=== PATIENT | female | born 1950 | race Caucasian/White ===

== ENCOUNTER 2016-07-14 19:08 | Emergency (ER) | payer OTHER ==
--- NOTE | 2016-07-14 20:02 | EDPHY ---
H & P Time Seen by Provider: 07/14/16 19:37 HPI/ROS: CHIEF COMPLAINT: ridiculous weak HISTORY OF PRESENT ILLNESS: Patient is a 65-year-old female with a history of Crohn's disease who presents to the emergency department feeling extremely weak. She states that it has slowly been progressing over the last month. She really noticed it worsening since last Tuesday. She feels fatigued when she tries to move about. She is able to take care of her ADLs. Patient denies any headache. She has had a mildly something nose. No cough sore throat. No chest pain or abdominal pain. No nausea or vomiting. She has had normal output from her ostomy. She states she has been trying to hydrate the thinks she is dehydrated. She denies dysuria or frequency. Subjective fever. No chills. REVIEW OF SYSTEMS: My complete review of systems is negative except as mentioned in the HPI. Past Medical/Surgical History: Includes Crohn's disease, glomerulonephritis, inflammatory arthritis, osteoporosis Past surgical history: Includes numerous Crohn related surgeries including ileostomy and colectomy. Social history: Patient does not drink alcohol. Smoking Status: Never smoked Physical Exam: Vitals noted. 37.4, 93/72, 98, 16, 99% on room air GENERAL: Well-appearing, in no acute distress, alert. HEENT: Eyes normal to inspection, normal pharynx, no signs of dehydration. NECK: No thyromegaly, no lymphadenopathy, supple. RESPIRATORY: Clear to auscultation bilaterally, no rales, rhonchi or wheezing. CVS: Regular rate and rhythm, no rubs, murmurs, or gallops. ABDOMEN: Soft, nontender, nondistended, no organomegaly. Benign. Ileostomy site clean dry and intact. Normal appearing output BACK: Normal to inspection, no CVA tenderness. SKIN: Normal color, no rash, warm, dry. No pallor. EXTREMITIES: No pedal edema, no calf tenderness, no Homans sign or cords, no joint swelling. NEURO/PSYCH: Alert and oriented , normal mood and affect, normal motor sensory exam. Constitutional: Initial Vital Signs Temperature (C) 37.4 C 07/14/16 19:14 Heart Rate 98 07/14/16 19:14 Respiratory Rate 16 07/14/16 19:14 Blood Pressure 93/72 L 07/14/16 19:14 O2 Sat (%) 99 07/14/16 19:14 O2 Delivery Mode Room Air Allergies/Adverse Reactions: gluten Allergy (Verified 07/14/16 19:19) SULFA Allergy (Uncoded 07/14/16 19:19) Home Medications: Medication Instructions Recorded Estrogen 06/30/15 Progesterone 06/30/15 oxyCODONE CR 07/14/16 Medical Decision Making ED Course/Re-evaluation: In the emergency department I discussed possible etiologies with the patient. I answered all her questions. Laboratory studies, a chest x-ray and EKG were ordered. Patient was given normal saline 1 L IV for hydration. EKG shows normal sinus rhythm, normal rate, normal axis, normal intervals. There are no ST or T-wave abnormalities. EKG is normal as interpreted by me. Patient has a white count of 9.6. Creatinine is minimally elevated at 1.3. This is consistent with her previous values. Patient has low sodium 129. I reviewed previous laboratory studies and she does have intermittent hyponatremia. Her lipase is minimally elevated at 332. Troponin is negative Chest x-ray: No acute disease noted. Old compression fractures On recheck the patient was concerned she continued to be dehydrated. She is given a 2nd L of normal saline. She was still unable to give urine. I discussed all results with the patient. I answered her questions. I rechecked the patient on numerous occasions. She remained concerned that she was dehydrated. She was given a 3rd L of normal saline. Abdomen soft, nontender nondistended. No respiratory distress. 2215: I discussed the results with the patient. I offered the patient admission for further evaluation. Patient would prefer to go home at this time. She is aware she needs close follow-up. She is aware of her abnormal laboratory findings as documented here. Differential Diagnosis: My differential includes but is not limited to influenza, viral illness, dehydration, electrolyte abnormality, sugar abnormality, ACS, acute IN, pneumonia, urinary tract infection - Data Points Laboratory Results: Laboratory Results 07/14/16 19:50 07/14/16 19:50 07/14/16 07/14/16 21:50 19:50 WBC 9.60 H 10^3/uL (3.80-9.50) RBC 4.52 10^6/uL (4.18-5.33) Hgb 14.1 g/dL (12.6-16.3) Hct 39.3 % (38.0-47.0) MCV 86.9 fL (81.5-99.8) MCH 31.2 pg (27.9-34.1) MCHC 35.9 g/dL (32.4-36.7) RDW 13.1 % (11.5-15.2) Plt Count 227 10^3/uL (150-400) MPV 9.8 fL (8.7-11.7) Neut % (Auto) 70.8 % (39.3-74.2) Lymph % (Auto) 19.9 % (15.0-45.0) [place] % (Auto) 6.1 % (4.5-13.0) Eos % (Auto) 1.9 % (0.6-7.6) Baso % (Auto) 0.8 % (0.3-1.7) Nucleat RBC Rel Count 0.0 % (0.0-0.2) Absolute Neuts (auto) 6.79 H 10^3/uL (1.70-6.50) Absolute Lymphs (auto) 1.91 10^3/uL (1.00-3.00) Absolute Monos (auto) 0.59 10^3/uL (0.30-0.80) Absolute Eos (auto) 0.18 10^3/uL (0.03-0.40) Absolute Basos (auto) 0.08 10^3/uL (0.02-0.10) Absolute Nucleated RBC 0.00 10^3/uL (0-0.01) Immature Gran % 0.5 % (0.0-1.1) Immature Gran # 0.05 10^3/uL (0.00-0.10) Sodium 129 L mEq/L (134-144) Potassium 4.0 mEq/L (3.5-5.2) Chloride 91 L mEq/L (97-110) Carbon Dioxide 27 mEq/l (22-31) Anion Gap 11 mEq/L (8-16) BUN 30 H mg/dL (7-23) Creatinine 1.3 H mg/dL (0.6-1.0) Estimated GFR 41 Glucose 93 mg/dL (70-100) Calcium 9.8 mg/dL (8.5-10.4) Total Bilirubin 0.6 mg/dL (0.1-1.4) Conjugated Bilirubin 0.2 mg/dL (0.0-0.5) Unconjugated Bilirubin 0.4 mg/dL (0.0-1.1) AST 28 IU/L (14-46) ALT 24 IU/L (9-52) Alkaline Phosphatase 112 IU/L (38-126) Troponin I < 0.012 ng/mL (0-0.034) Total Protein 7.1 g/dL (6.3-8.2) Albumin 4.2 g/dL (3.5-5.0) Lipase 332.0 H IU/L (23-300) TSH 2.110 uIU/mL (0.465-4.680) Urine Color YELLOW Urine Appearance CLEAR Urine pH 8.0 H (5.0-7.5) Ur Specific [place] 1.015 (1.002-1.030) Urine Protein NEGATIVE (NEGATIVE) Urine Ketones NEGATIVE (NEGATIVE) Urine Blood NEGATIVE (NEGATIVE) Urine Nitrate NEGATIVE (NEGATIVE) Urine Bilirubin NEGATIVE (NEGATIVE) Urine Urobilinogen NEGATIVE EU (0.2-1.0) Ur Leukocyte Esterase NEGATIVE (NEGATIVE) Ur Culture Indicated? NOT INDICATED (NI) Urine Glucose NEGATIVE (NEGATIVE) Medications Given: Discontinued Medications Sodium Chloride (Ns) 2,000 mls @ 0 mls/hr IV EDNOW ONE PRN Reason: Wide Open Stop: 07/14/16 21:09 Last Admin: 07/14/16 20:30 Dose: 2,000 mls Sodium Chloride (Ns) 1,000 mls @ 0 mls/hr IV EDNOW ONE PRN Reason: Wide Open Stop: 07/14/16 21:20 Last Admin: 07/14/16 21:44 Dose: 1,000 mls Lorazepam (Ativan Injection) 0.5 mg IVP EDNOW ONE Stop: 07/14/16 21:59 Last Admin: 07/14/16 22:13 Dose: 0.5 mg Departure - Departure Disposition: Home, Routine, Self-Care Clinical Impression: Generalized weakness, Hyponatremia, Elevated lipase Condition: Good Instructions: Weakness (ED), Hyponatremia (ED) Additional Instructions: Return with increasing weakness, fever, vomiting, diarrhea, shortness of breath , abdominal pain or any other concerns. Referrals: Jyoti Petty MD [Primary Care Provider] - 1-2 days without fail
[2016-07-14 20:10] LABS: % IMMATURE GRANULYOCYTES 0.5 % (0.0-1.1); ABSOLUTE IMMATURE GRANULOCYTES 0.05 10^3/uL (0.00-0.10); ADD DIFF? NO; ADD MORPH? NO; ADD SCAN? NO; ATYPICAL LYMPHOCYTE FLAG 20 (0-99); FRAGMENT RBC FLAG 0 (0-99); HEMATOCRIT 39.3 % (38.0-47.0); HEMOGLOBIN 14.1 g/dL (12.6-16.3); LEFT SHIFT FLG 0 (0-99); LIPEMIA HEMOLYSIS FLAG 90 (0-99); MEAN CELL HEMOGLOBIN 31.2 pg (27.9-34.1); MEAN CELL HEMOGLOBIN CONCENTR. 35.9 g/dL (32.4-36.7); MEAN CELL VOLUME 86.9 fL (81.5-99.8); MEAN PLATELET VOLUME 9.8 fL (8.7-11.7); PLATELET CLUMPS FLAG 20 (0-99); PLATELET COUNT 227 10^3/uL (150-400); RED BLOOD CELL COUNT 4.52 10^6/uL (4.18-5.33); RED CELL DISTRIBUTION WIDTH 13.1 % (11.5-15.2)
[2016-07-14 20:25] LABS: ALANINE AMINOTRANSFERASE 24 IU/L (9-52); ALBUMIN 4.2 g/dL (3.5-5.0); ALKALINE PHOSPHATASE 112 IU/L (38-126); ANION GAP 11 mEq/L (8-16); ASPARTATE AMINOTRANSFERASE 28 IU/L (14-46); BILIRUBIN,TOTAL 0.6 mg/dL (0.1-1.4); BILIRUBIN-CONJUGATED 0.2 mg/dL (0.0-0.5); BILIRUBIN-UNCONJUGATED 0.4 mg/dL (0.0-1.1); CALCIUM 9.8 mg/dL (8.5-10.4); CARBON DIOXIDE 27 mEq/l (22-31); CHLORIDE 91 mEq/L (97-110); CREATININE 1.3 mg/dL (0.6-1.0); GLOMERULAR FILTRATION RATE 41; GLUCOSE 93 mg/dL (70-100); SODIUM 129 mEq/L (134-144); TOTAL PROTEIN 7.1 g/dL (6.3-8.2)
--- NOTE | 2016-07-14 20:31 | CPEKG ---
Heart Rate: 86 RR Interval: 698 P-R Interval: 124 QRSD Interval: 70 QT Interval: 392 QTC Interval: 469 P [place]: 80 QRS [place]: 71 T Wave [place]: 53 EKG Severity - NORMAL ECG - EKG Impression: SINUS RHYTHM Electronically Signed By: Ann Pruett 14-Jul-2016 22:03:24
[2016-07-14 20:36] LABS: TROPONIN I < 0.012 ng/mL (0-0.034)
--- NOTE | 2016-07-14 20:40 | DX ---
PA and Lateral Chest on July 14, 2016 Clinical Indications: Fever, body aches, and chest pain. Comparison: May 03, 2006. Findings: The lungs are clear, and no masses are found. The heart and pulmonary vessels are normal. There are no pleural effusions and no pneumothorax. The bones are unremarkable for this age. Mild loss of height at T11 and T7. The T11 compression fracture is largely unchanged. There is some inc reased loss of height at T7 compared to prior examination. There is also mild loss of height at T6, previously noted. Impression: 1. No acute cardiopulmonary process. 2. Compression fractures at T6, T7 and T11. I suspect these may be old. There has been some interva l change at the T6 and T7 levels compared to 2006.
[2016-07-14] MEDS ORDERED: NS 2,000 ML IV ONE (21:08)
[2016-07-14] MEDS ORDERED: NS 1,000 ML IV ONE (21:19)
[2016-07-14 21:55] VITALS: O2SAT 96
[2016-07-14] MEDS ORDERED: LORazepam 2 MG/ML INJ IVP ONE (21:58)
[2016-07-14] MEDS ORDERED: LORazepam 2 MG/ML INJ ONE (22:00)
[2016-07-14 22:08] LABS: COLOR YELLOW; LEUKOCYTE ESTERASE,URINE NEGATIVE (NEGATIVE); NITRITE,URINE NEGATIVE (NEGATIVE)
[2016-07-14] MEDS ORDERED: LORazepam 1 MG TAB PO ONE (22:36)
[2016-07-14 22:49] VITALS: BP 100/71; PULSE 97; RESP 16; TEMP 98.2
== END 2016-07-14 22:49 | disposition home or self-care (01) ==
DX: E87.1 Hypo-osmolality and hyponatremia (principal); E78.89 Other lipoprotein metabolism disorders
CPT/HCPCS: 96374

== ENCOUNTER → 2016-10-21 | Outpatient (CLI) | payer OTHER | LOC: FIMAGING 11:45 | PROVIDERS: ATTEND Physician Assistant | DX: S06.350A Traumatic hemorrhage of left cerebrum without loss of consciousness, initial encounter (principal); R41.89 Other symptoms and signs involving cognitive functions and awareness; W19.XXXA Unspecified fall, initial encounter ==

== ENCOUNTER → 2016-11-01 | Outpatient (CLI) | payer OTHER | LOC: FIMAGING 16:39 | PROVIDERS: ATTEND Family Medicine | DX: R90.89 Other abnormal findings on diagnostic imaging of central nervous system (principal); R41.89 Other symptoms and signs involving cognitive functions and awareness; S09.90XA Unspecified injury of head, initial encounter; W19.XXXA Unspecified fall, initial encounter ==

== ENCOUNTER 2016-11-03 20:12 | Observation (INO) | payer OTHER ==
[2016-11-03] MEDS ORDERED: ONDANSETRON 4 MG/2 ML VIAL ONE (20:31)
[2016-11-03] MEDS ORDERED: NS 1,000 ML IV ONE ×2 (20:41)
[2016-11-03] MEDS ORDERED: ONDANSETRON 4 MG/2 ML VIAL IVP ONE (20:41)
--- NOTE | 2016-11-03 20:43 | EDPHY ---
H & P Time Seen by Provider: 11/03/16 20:30 HPI/ROS: CHIEF COMPLAINT: Nausea and vomiting HISTORY OF PRESENT ILLNESS: Patient has a history of Crohn's disease colectomy and ileostomy. She has been struggling with intermittent nausea since she took Levaquin in mid September of this year. She saw her primary care practice at [facility] yesterday and again today for nausea and dehydration and IV fluids. Today, she presents with persistent nausea and multiple episodes of vomiting, 3 today and 1 yesterday. Symptoms are severe. Associated with her feeling very fatigued weak with no energy. Not associated with change in ileostomy output or abdominal distention or abdominal pain. No coffee-ground emesis or hematemesis. REVIEW OF SYSTEMS: Eye: no change in vision ENT: Mild sore throat from thrush last week but better now. Cardiac: no chest pain or syncope Pulmonary: no cough or SOB Abdomen: HPI Musculoskeletal: no back pain Skin: no rash Neuro: no headache Constitutional: no fever : no urinary symptoms A comprehensive 10 point review of systems is otherwise negative aside from elements mentioned in the history of present illness. PAST MEDICAL HISTORY: Crohn's disease, ileostomy, colectomy. IgA nephropathy. Arthritis and osteoporosis. Social history: Smoker General Appearance: Alert and conversant, cooperative. Eyes: No scleral icterus. ENT, Mouth: Dry mucous membranes Respiratory: Normal respiratory effort, breath sounds equal, lungs are clear to auscultation. Cardiovascular: Regular rate and rhythm. Gastrointestinal: Abdomen is soft and non tender. Ileostomy is soft, not distended, no peritoneal signs. Neurological: Alert and oriented x3. Normally conversant. Face symmetric, normal movement and sensation in all extremities. Skin: Warm and dry, no rashes. Musculoskeletal: No peripheral edema and no joint swelling. Psychiatric: Not agitated. Emergency Department course/MDM: Normal saline 2 L IV for nausea and vomiting. Check labs because patient relates a history of recent hyperkalemia. Zofran 4 mg IV. 2124: Re-examined, results discussed including creatinine of 2.4 which is elevated compared to 2.2 on the 01 of October and 1.3 in July of this year. Admission for IV fluids, acute renal failure likely from dehydration. Smoking Status: Never smoked Constitutional: Initial Vital Signs Temperature (C) 36.7 C 04/26/17 20:29 Heart Rate 92 11/03/16 20:29 Respiratory Rate 18 11/03/16 20:29 Blood Pressure 98/61 L 11/03/16 20:29 O2 Sat (%) 94 11/03/16 20:29 O2 Delivery Mode Room Air Allergies/Adverse Reactions: gluten Allergy (Verified 07/14/16 19:19) SULFA Allergy (Uncoded 07/14/16 19:19) Home Medications: Medication Instructions Recorded Estradiol [Estradiol 0.5 MG (RX)] 0.5 mg PO DAILY 11/03/16 Herbals/Supplements -Info Only 1 ea PO DAILY 11/03/16 Ondansetron Odt [Zofran Odt 4 mg 4 - 8 mg PO DAILY PRN 11/03/16 (*)] Progesterone, Micronized 100 mg PO DAILY 11/03/16 [Progesterone] oxyCODONE HCL [Oxycodone HCl] 5 ml PO BID PRN 11/03/16 Medical Decision Making Differential Diagnosis: Differential diagnosis considered for nausea and vomiting including but not limited to gastroenteritis, gastritis, appendicitis, and medication side effect. Consult/Admit Bed Type: [place] [id number] - Data Points Laboratory Results: Laboratory Results 11/03/16 20:40 11/03/16 20:40 11/03/16 11/03/16 11/03/16 20:40 20:40 20:40 WBC 13.41 10^3/uL H 10^3/uL (3.80-9.50) RBC 3.85 10^6/uL L 10^6/uL (4.18-5.33) Hgb 12.2 g/dL L g/dL (12.6-16.3) Hct 34.8 % L % (38.0-47.0) MCV 90.4 fL fL (81.5-99.8) MCH 31.7 pg pg (27.9-34.1) MCHC 35.1 g/dL g/dL (32.4-36.7) RDW 13.1 % % (11.5-15.2) Plt Count 252 10^3/uL 10^3/uL (150-400) MPV 9.2 fL fL (8.7-11.7) Neut % (Auto) 66.8 % % (39.3-74.2) Lymph % (Auto) 23.3 % % (15.0-45.0) [place] % (Auto) 5.5 % % (4.5-13.0) Eos % (Auto) 2.8 % % (0.6-7.6) Baso % (Auto) 1.0 % % (0.3-1.7) Nucleat RBC Rel Count 0.0 % % (0.0-0.2) Absolute Neuts (auto) 8.96 10^3/uL H 10^3/uL (1.70-6.50) Absolute Lymphs (auto) 3.12 10^3/uL H 10^3/uL (1.00-3.00) Absolute Monos (auto) 0.74 10^3/uL 10^3/uL (0.30-0.80) Absolute Eos (auto) 0.38 10^3/uL 10^3/uL (0.03-0.40) Absolute Basos (auto) 0.13 10^3/uL H 10^3/uL (0.02-0.10) Absolute Nucleated RBC 0.00 10^3/uL 10^3/uL (0-0.01) Immature Gran % 0.6 % % (0.0-1.1) Immature Gran # 0.08 10^3/uL 10^3/uL (0.00-0.10) Sodium 134 mEq/L mEq/L (134-144) Potassium 4.0 mEq/L mEq/L (3.5-5.2) Chloride 99 mEq/L mEq/L (97-110) Carbon Dioxide 23 mEq/l mEq/l (22-31) Anion Gap 12 mEq/L mEq/L (8-16) BUN 45 mg/dL H mg/dL (7-23) Creatinine 2.4 mg/dL H mg/dL (0.6-1.0) Estimated GFR 20 Glucose 111 mg/dL H mg/dL (70-100) Calcium 10.6 mg/dL H mg/dL (8.5-10.4) Total Bilirubin 0.6 mg/dL mg/dL (0.1-1.4) Conjugated Bilirubin 0.4 mg/dL mg/dL (0.0-0.5) Unconjugated Bilirubin 0.2 mg/dL mg/dL (0.0-1.1) AST 29 IU/L IU/L (14-46) ALT 26 IU/L IU/L (9-52) Alkaline Phosphatase 105 IU/L IU/L (38-126) Total Protein 7.7 g/dL g/dL (6.3-8.2) Albumin 4.5 g/dL g/dL (3.5-5.0) Lipase 146.0 IU/L IU/L (23-300) Medications Given: Discontinued Medications Sodium Chloride (Ns) 1,000 mls @ 0 mls/hr IV ONCE ONE PRN Reason: Wide Open Stop: 11/03/16 20:42 Last Admin: 11/03/16 21:16 Dose: 1,000 mls Sodium Chloride (Ns) 1,000 mls @ 0 mls/hr IV ONCE ONE PRN Reason: Wide Open Stop: 11/03/16 20:42 Last Admin: 11/03/16 20:44 Dose: 1,000 mls Ondansetron HCl (Zofran) 4 mg IVP EDNOW ONE Stop: 11/03/16 20:42 Last Admin: 11/03/16 20:44 Dose: 4 mg Departure - Departure Disposition: [facility] Inpatient Acute Clinical Impression: Nausea & vomiting Qualifiers: Vomiting type: unspecified Vomiting Intractability: non-intractable Qualified Code(s): R11.2 - Nausea with vomiting, unspecified Acute renal failure Qualifiers: Acute renal failure type: unspecified Qualified Code(s): N17.9 - Acute kidney failure, unspecified Condition: Good
[2016-11-03 20:50] LABS: % IMMATURE GRANULYOCYTES 0.6 % (0.0-1.1); ABSOLUTE IMMATURE GRANULOCYTES 0.08 10^3/uL (0.00-0.10); ADD DIFF? NO; ADD MORPH? NO; ADD SCAN? NO; ATYPICAL LYMPHOCYTE FLAG 20 (0-99); FRAGMENT RBC FLAG 0 (0-99); HEMATOCRIT 34.8 % (38.0-47.0); HEMOGLOBIN 12.2 g/dL (12.6-16.3); LEFT SHIFT FLG 0 (0-99); LIPEMIA HEMOLYSIS FLAG 90 (0-99); MEAN CELL HEMOGLOBIN 31.7 pg (27.9-34.1); MEAN CELL HEMOGLOBIN CONCENTR. 35.1 g/dL (32.4-36.7); MEAN CELL VOLUME 90.4 fL (81.5-99.8); MEAN PLATELET VOLUME 9.2 fL (8.7-11.7); PLATELET CLUMPS FLAG 0 (0-99); PLATELET COUNT 252 10^3/uL (150-400); RED BLOOD CELL COUNT 3.85 10^6/uL (4.18-5.33); RED CELL DISTRIBUTION WIDTH 13.1 % (11.5-15.2)
[2016-11-03 21:14] LABS: ANION GAP 12 mEq/L (8-16); CALCIUM 10.6 mg/dL (8.5-10.4); CARBON DIOXIDE 23 mEq/l (22-31); CHLORIDE 99 mEq/L (97-110); CREATININE 2.4 mg/dL (0.6-1.0); GLOMERULAR FILTRATION RATE 20; GLUCOSE 111 mg/dL (70-100); SODIUM 134 mEq/L (134-144)
[2016-11-03 22:24] LABS: ALBUMIN 4.5 g/dL (3.5-5.0); BILIRUBIN,TOTAL 0.6 mg/dL (0.1-1.4); BILIRUBIN-CONJUGATED 0.4 mg/dL (0.0-0.5); BILIRUBIN-UNCONJUGATED 0.2 mg/dL (0.0-1.1); TOTAL PROTEIN 7.7 g/dL (6.3-8.2)
[2016-11-03] MEDS ORDERED: ACETAMINOPHEN 325 MG TAB PO PRN (23:58)
[2016-11-03] MEDS ORDERED: ONDANSETRON 4 MG/2 ML VIAL IVP PRN (23:58)
[2016-11-03] MEDS ORDERED: TEMAZEPAM 15 MG CAP PO PRN (23:58)
[2016-11-03] MEDS ORDERED: ONDANSETRON DISINTEGRATING 4 MG TAB PO PRN (23:58)
[2016-11-04] MEDS ORDERED: oxyCODONE IR 15 MG TAB PO ONE (00:03)
[2016-11-04] MEDS: NS 1,000 ML IV SCH ×2 (00:18→06:28)
[2016-11-04] MEDS: oxyCODONE IR 5 MG TAB PO PRN ×3 (03:15→12:20)
--- NOTE | 2016-11-04 04:27 | PDGENHP ---
History and Physical - Chief Complaint nausea, vomiting - History of Present Illness Patient is a 66 year old female with Crohn's disease s/p subtotal colectomy with ileostomy, IgA nephropathy (baseline cr 1.1-1.3) who presents to the ED with complaint of nausea and vomiting for the past 2 days. Patient states she had a UTI and pneumonia in early September, completed a course of Levaquin and since that time she has been feeling nauseous. However about 3 days ago her nausea intensified and she began having nonbilious nonbloody vomiting, 3-4 episodes/day. She denies any associated abdominal pain, or change in her ileostomy output volume or quality. She also denies any recent fevers chills, coughing, congestion, chest pain, shortness of breath, dysuria. She was evaluated by her PMD about 2 days ago, had labs drawn and was given IV fluid hydration in the out patient setting. However her symptoms persisted so she came to the ED for further evaluation. On arrival to the ED patient was afebrile hemodynamic stable. Labs revealed leukocytosis, elevated BUN and creatinine, normal K. She was given IV fluid hydration and admitted to the hospital service for further management. History Information - Allergies/Home Medication List Allergies/Adverse Reactions: gluten Allergy (Verified 07/14/16 19:19) SULFA Allergy (Uncoded 07/14/16 19:19) Home Medications: Estradiol [Estradiol 0.5 MG (RX)] 0.5 mg PO DAILY 11/03/16 [Last Taken 11/03/16] Herbals/Supplements -Info Only 1 ea PO DAILY 11/03/16 [Last Taken Unknown] Ondansetron Odt [Zofran Odt 4 mg (*)] 4 - 8 mg PO DAILY PRN 11/03/16 [Last Taken Unknown] Progesterone, Micronized [Progesterone] 100 mg PO DAILY 11/03/16 [Last Taken ] oxyCODONE HCL [Oxycodone HCl] 5 ml PO BID PRN 11/03/16 [Last Taken Unknown] I have personally reviewed and updated: family history, medical history, social history, surgical history - Past Medical History Additional medical history: Crohn's disease s/p subtotal colectomy with ileostomy. IgA nephropathy (baseline cr 1.1-1.3). Osteoporosis with several chronic compression fractures. B12 deficiency - Surgical History Additional surgical history: subtotal colectomy with resulting ileostomy. tonsillectomy. ankle fracture repair - Family History Positive for: non-pertinent - Social History Smoking Status: Current some day smoker (1-2 cigarettes occasionally) Alcohol Use: None Drug Use: None Additional social history: Patient lives with her daughter, is independent in ADLs Review of Systems ROS: 10pt was reviewed & negative except for what was stated in HPI & below Physical Exam Temp Pulse Resp BP Pulse Ox 36.5 C 94 14 85/55 L 95 11/04/16 03:09 11/04/16 03:09 11/04/16 03:09 11/04/16 03:09 11/04/16 03:09 Constitutional: no apparent distress, appears nourished, not in pain Eyes: PERRL, anicteric sclera, EOMI Ears, Nose, Mouth, Throat: hearing normal, ears appear normal, no oral mucosal ulcers, dry mucous membranes Cardiovascular: regular rate and rhythym, no murmur, rub, or gallop, pulses symmetric bilaterally, No JVD, No edema Peripheral Pulses: 2+: dorsalis-pedis (R), dorsalis-pedis (L) Respiratory: no respiratory distress, no rales or rhonchi, clear to auscultation Gastrointestinal: normoactive bowel sounds, soft, non-tender abdomen, no palpable masses, other (ileostomy in R abdomen; stoma pink, without erythema), No guarding, No rebound Genitourinary: no bladder fullness, no bladder tenderness Skin: warm, normal color, no rashes or abrasions, no fluctuance, no induration, No mottled Musculoskeletal: full muscle strength, no muscle tenderness, normal joint ROM, no joint effusions Neurologic: AAOx3, sensation intact bilaterally, CN II-XII Intact, No weakness, No numbness Psychiatric: interacting appropriately, not anxious, not encephalopathic, thought process linear Lab Data & Imaging Review 11/03/16 20:40 11/03/16 20:40 WBC 13.41 10^3/uL (3.80-9.50) H 11/03/16 20:40 RBC 3.85 10^6/uL (4.18-5.33) L 11/03/16 20:40 Hgb 12.2 g/dL (12.6-16.3) L 11/03/16 20:40 Hct 34.8 % (38.0-47.0) L 11/03/16 20:40 MCV 90.4 fL (81.5-99.8) 11/03/16 20:40 MCH 31.7 pg (27.9-34.1) 11/03/16 20:40 MCHC 35.1 g/dL (32.4-36.7) 11/03/16 20:40 RDW 13.1 % (11.5-15.2) 11/03/16 20:40 Plt Count 252 10^3/uL (150-400) 11/03/16 20:40 MPV 9.2 fL (8.7-11.7) 11/03/16 20:40 Neut % (Auto) 66.8 % (39.3-74.2) 11/03/16 20:40 Lymph % (Auto) 23.3 % (15.0-45.0) 11/03/16 20:40 [place] % (Auto) 5.5 % (4.5-13.0) 11/03/16 20:40 Eos % (Auto) 2.8 % (0.6-7.6) 11/03/16 20:40 Baso % (Auto) 1.0 % (0.3-1.7) 11/03/16 20:40 Nucleat RBC Rel Count 0.0 % (0.0-0.2) 11/03/16 20:40 Absolute Neuts (auto) 8.96 10^3/uL (1.70-6.50) H 11/03/16 20:40 Absolute Lymphs (auto) 3.12 10^3/uL (1.00-3.00) H 11/03/16 20:40 Absolute Monos (auto) 0.74 10^3/uL (0.30-0.80) 11/03/16 20:40 Absolute Eos (auto) 0.38 10^3/uL (0.03-0.40) 11/03/16 20:40 Absolute Basos (auto) 0.13 10^3/uL (0.02-0.10) H 11/03/16 20:40 Absolute Nucleated RBC 0.00 10^3/uL (0-0.01) 11/03/16 20:40 Immature Gran % 0.6 % (0.0-1.1) 11/03/16 20:40 Immature Gran # 0.08 10^3/uL (0.00-0.10) 11/03/16 20:40 Sodium 134 mEq/L (134-144) 11/03/16 20:40 Potassium 4.0 mEq/L (3.5-5.2) 11/03/16 20:40 Chloride 99 mEq/L (97-110) 11/03/16 20:40 Carbon Dioxide 23 mEq/l (22-31) 11/03/16 20:40 Anion Gap 12 mEq/L (8-16) 11/03/16 20:40 BUN 45 mg/dL (7-23) H 11/03/16 20:40 Creatinine 2.4 mg/dL (0.6-1.0) H 11/03/16 20:40 Estimated GFR 20 11/03/16 20:40 Glucose 111 mg/dL (70-100) H 11/03/16 20:40 Calcium 10.6 mg/dL (8.5-10.4) H 11/03/16 20:40 Total Bilirubin 0.6 mg/dL (0.1-1.4) 11/03/16 20:40 Conjugated Bilirubin 0.4 mg/dL (0.0-0.5) 11/03/16 20:40 Unconjugated Bilirubin 0.2 mg/dL (0.0-1.1) 11/03/16 20:40 AST 29 IU/L (14-46) 11/03/16 20:40 ALT 26 IU/L (9-52) 11/03/16 20:40 Alkaline Phosphatase 105 IU/L (38-126) 11/03/16 20:40 Total Protein 7.7 g/dL (6.3-8.2) 11/03/16 20:40 Albumin 4.5 g/dL (3.5-5.0) 11/03/16 20:40 Lipase 146.0 IU/L (23-300) 11/03/16 20:40 Assessment & Plan Assessment: Patient is a 66-year-old female with history of Crohn's disease, ileostomy who presents to the ED with complaint of nausea vomiting and fatigue. ED workup reveals acute renal failure, presumed to be secondary to prerenal hypovolemia. Nausea & vomiting (Acute) Acute renal failure (Acute) Plan: # acute renal failure Patient reports history of known IgA nephropathy, with previous baseline cr 1- 1.3. Presenting labs show elevated BUN/cr from previous baseline. Given her history of nausea, vomiting and decreased PO intake over past 3 days, suspect pre-renal etiology. Will check urine electrolytes, UA and renal US to further assess. She has been given aggressive IVF hydration in the ED, will continue maintenance hydration overnight and reassess BMP, electrolytes in am. # nausea, vomiting Symptoms have been present for about 3 days, not associated with any significant abdominal pain. LFTs and Lipase are wnl. Suspect a viral gastritis. Symptoms have improved in the ED with zofran, will cont this as needed. # leukocytosis Likely reactive in setting of above, possibly the result of a viral infection. She is afebrile, not tachycardic or tachypneic and has no clinical indications for antibiotics at this time. Will cont to monitor. # crohn's disease Patient reports this has been in remission for several years. Denies any abdominal pain, blood in her vomitus or stools on today's presentation. Will continue her B12 and MVN supplementation. # osteoporosis, chronic pain Stable, will provide pain meds prn. # dispo: admit to observation status # gen: renal diet DVT ppx: HSQ Full code
[2016-11-04 05:34] LABS: % IMMATURE GRANULYOCYTES 0.3 % (0.0-1.1); ABSOLUTE IMMATURE GRANULOCYTES 0.02 10^3/uL (0.00-0.10); ADD DIFF? NO; ADD MORPH? NO; ADD SCAN? NO; ATYPICAL LYMPHOCYTE FLAG 0 (0-99); FRAGMENT RBC FLAG 0 (0-99); HEMATOCRIT 28.4 % (38.0-47.0); HEMOGLOBIN 9.9 g/dL (12.6-16.3); LEFT SHIFT FLG 0 (0-99); LIPEMIA HEMOLYSIS FLAG 90 (0-99); MEAN CELL HEMOGLOBIN 31.4 pg (27.9-34.1); MEAN CELL HEMOGLOBIN CONCENTR. 34.9 g/dL (32.4-36.7); MEAN CELL VOLUME 90.2 fL (81.5-99.8); MEAN PLATELET VOLUME 9.4 fL (8.7-11.7); PLATELET CLUMPS FLAG 0 (0-99); PLATELET COUNT 183 10^3/uL (150-400); RED BLOOD CELL COUNT 3.15 10^6/uL (4.18-5.33); RED CELL DISTRIBUTION WIDTH 13.2 % (11.5-15.2)
[2016-11-04 05:50] LABS: ANION GAP 7 mEq/L (8-16); CALCIUM 9.1 mg/dL (8.5-10.4); CARBON DIOXIDE 23 mEq/l (22-31); CHLORIDE 107 mEq/L (97-110); CREATININE 1.9 mg/dL (0.6-1.0); GLOMERULAR FILTRATION RATE 26; GLUCOSE 93 mg/dL (70-100); MAGNESIUM 1.6 mg/dL (1.6-2.3); SODIUM 137 mEq/L (134-144)
[2016-11-04] MEDS ORDERED: HEPARIN 5,000 UNIT/0.5 ML SYR SC SCH (06:00)
[2016-11-04 06:28] LABS: COLOR YELLOW; LEUKOCYTE ESTERASE,URINE NEGATIVE (NEGATIVE); NITRITE,URINE NEGATIVE (NEGATIVE)
[2016-11-04 06:39] LABS: RANDOM URINE POTASSIUM 81.3 mEq/L (0.5-35.0); RANDOM URINE PROTEIN 13 mg/dL (0-11)
[2016-11-04] MEDS ORDERED: NS 1,000 ML IV ONE ×2 (08:45→09:38)
--- NOTE | 2016-11-04 08:50 | CPEKG ---
Heart Rate: 71 RR Interval: 845 P-R Interval: 124 QRSD Interval: 68 QT Interval: 384 QTC Interval: 418 P [place]: 85 QRS [place]: 74 T Wave [place]: 65 EKG Severity - ABNORMAL ECG - EKG Impression: SINUS RHYTHM EKG Impression: POOR R WAVE PROGRESSION ANTERIORLY, POSSIBLE OLD ANTERIOR INFARCT Electronically Signed By: Lee Robledo 04-Nov-2016 14:35:39
[2016-11-04] MEDS ORDERED: Herbals/Supplements -Info Only PO SCH (09:00)
[2016-11-04] MEDS ORDERED: PROGESTERONE,MICR 100 MG CAP PO SCH (09:00)
[2016-11-04] MEDS ORDERED: ESTRADIOL 0.5 MG TAB PO SCH (09:00)
[2016-11-04] MEDS ORDERED: LORazepam 1 MG TAB PO ONE (09:38)
[2016-11-04] MEDS ORDERED: oxyCODONE IR 5 MG TAB PO ONE (09:38)
--- NOTE | 2016-11-04 10:53 | PDDCSUM ---
Discharge Summary Discharge Summary: DISCHARGE SUMMARY FOLLOW-UP ITEMS: Repeat basic metabolic panel on Tuesday DATE OF ADMISSION: 11/03/2016 DATE OF DISCHARGE: 11/04/2016 DISCHARGE DIAGNOSES: 1. Acute kidney injury on chronic kidney disease stage 3 2. Acute hypotension 3. Acute nausea and vomiting CONSULTATIONS: None PROCEDURES / IMAGING: Renal ultrasound demonstrating no evidence of hydronephrosis CHIEF COMPLAINT: Acute nausea and vomiting SUBJECTIVE: Patient is feeling well at time of discharge, her back is hurting her somewhat PHYSICAL EXAM ON DISCHARGE: Systolic blood pressure 92, heart rate 78 afebrile, alert awake oriented x3 no apparent distress, bowel sounds are present, ostomy bag with brown liquid stool , no tenderness to palpation over the abdomen LABS ON DISCHARGE: Creatinine is 1.9, white blood cell count 7200, hemoglobin 9.9, liver panel unremarkable, potassium 4, TSH 2.2, urine sodium less than 5, urinalysis unremarkable HOSPITAL COURSE BY PROBLEM: 1. Acute kidney injury on chronic kidney disease stage 3. Secondary to hypovolemia in the setting of nausea and vomiting, poor oral intake, resulting in renal hypoperfusion in the setting of underlying chronic kidney disease stage 3 secondary to a long history of IgA nephropathy. The patient received IV fluids, her serum creatinine level improved, urine output was plus full, the patient is comfortable being discharged at this time with repeat labs on Tuesday. The patient's level be followed up by her primary care provider. She is currently tolerating good oral intake. 2. Acute nausea and vomiting. Unclear precipitant, potentially secondary to a gastroenteritis versus bowel tonio changes in the setting of recent antibiotic use, she has received as needed Zofran for symptoms have resolved, will provide her with as-needed Zofran at discharge. 3. Acute hypotension. Systolic blood pressure in the 80s, the patient normally has a blood pressure in the 90s, she reports that it was as low as the 60s at home, her systolic blood pressure is 92 at time discharge, she is no tachycardia , she is currently at her baseline. DISCHARGE MEDICATIONS: Please see official discharge medication reconciliation sheet in chart , Zofran as needed, oxycodone immediate release 5 mg 12 tabs prescribed, all other home medications. DISCHARGE INSTRUCTIONS: Please follow up with primary care provider as scheduled, have labs drawn this Tuesday.
[2016-11-04 11:40] VITALS: BP 90/57; PULSE 71; RESP 16; TEMP 98.1; O2SAT 97
== END 2016-11-04 14:45 | disposition home or self-care (01) ==
LOC: INTOOBSV 21:47 → F3E 23:30
PROVIDERS: ADMIT Family Medicine; ATTEND Internal Medicine
DX: N17.9 Acute kidney failure, unspecified (principal); N18.3 Chronic kidney disease, stage 3 (moderate); I95.9 Hypotension, unspecified; R11.2 Nausea with vomiting, unspecified; N02.8 Recurrent and persistent hematuria with other morphologic changes; M81.0 Age-related osteoporosis without current pathological fracture; Z90.49 Acquired absence of other specified parts of digestive tract; Z93.2 Ileostomy status; F17.210 Nicotine dependence, cigarettes, uncomplicated
CPT/HCPCS: 76770; 93005; 96360; 96374; 99285; G0378; J2405

== ENCOUNTER 2016-11-12 21:21 | Observation (INO) | payer OTHER ==
--- NOTE | 2016-11-12 22:41 | EDPHY ---
H & P Stated Complaint: dehydration HPI/ROS: HPI CHIEF COMPLAINT: "I am dehydrated" HISTORY OF PRESENT ILLNESS: This patient very pleasant 66-year-old female, significant past medical history for Crohn's disease history of chronic steroid use but no longer take steroids, chronic back pain with compression fractures, recent admission to the hospital for dehydration and hypotension, presents to the emergency room stating that she feels very dehydrated and that her blood pressures been low in the 90s. She also complains of generalized weakness. Denies shortness of breath or chest pain. Denies vomiting today but does tell me that she has had some vomiting over the past week. Denies high output from her ileostomy. She decided come to the emergency room this evening as she has not been feeling well she is concerned that her kidney function may be worsening and she is not getting enough p.o. fluids. Past Medical History: Chronic kidney disease stage 3, recent acute kidney injury, recent hospitalization for hypertension, Crohn's disease, IgA nephropathy Past Surgical History: Ileostomy Social History: Denies daily use drugs alcohol tobacco products Family History: Noncontributory ROS REVIEW OF SYSTEMS: A comprehensive 10 point review of systems is otherwise negative aside from elements mentioned in the history of present illness. Exam Constitutional appears nontoxic, triage nursing summary reviewed, vital signs reviewed, awake/alert. Vital signs reviewed oxygen saturation 87%, blood pressure 90 systolic. Eyes normal conjunctivae and sclera, EOMI, PERRLA. HENT normal inspection, atraumatic, dry mucous membranes, no epistaxis, neck supple/ no meningismus, no raccoon eyes. Respiratory clear to auscultation bilaterally, normal breath sounds, no respiratory distress, no wheezing. Cardiovascular rate normal, regular rhythm, no murmur, no edema, distal pulses normal. Gastrointestinal soft, non-tender, no rebound, no guarding, normal bowel sounds, no distension, no pulsatile mass. Genitourinary no CVA tenderness. Musculoskeletal no midline vertebral tenderness, full range of motion, no calf swelling, no tenderness of extremities, no meningismus, good pulses, neurovascularly intact. Skin pink, warm, & dry, no rash, skin atraumatic. Neurologic awake, alert and oriented x 3, AAOx3, moves all 4 extremities equally, motor intact, sensory intact, CN II-XII intact, normal cerebellar, normal vision, normal speech. Psychiatric normal mood/affect. Heme/Lymph/Immune no lymphadenopathy. Differential Diagnosis: Includes but is not limited to in a particular order acute kidney injury,electrolyte disturbance, UTI Medical Decision Making: Plan for this patient IV establishment, IV blood work , IV fluids will be given. Check urinalysis, EKG, electrolytes. Re-evaluation: ED x-ray chest two view negative for acute cardiopulmonary disease specifically no infiltrate. EKG interpretation by me on record in [employer] system. Impression time of EKG 2347 , sinus rhythm rate of 56 no ischemic changes appreciated. 1234AM: Re-examination at this time this patient is requesting be admitted to the hospital for acute kidney injury dehydration she requesting more IV fluids. Due to the creatinine 2.5 blood pressure in the 90s and she does clinically on exam appeared dehydrated I will admit her for IV fluids acute kidney injury dehydration. 1237AM:this patient is resting comfortably here in the emergency room no acute distress. She be admitted for acute kidney injury, hypertension, dehydration, dehydration, Spoke with Dr. Gonzalez agrees to admit this patient. Source: Patient - Personal History Tetanus Vaccine Date: 2014 - Medical/Surgical History Hx Asthma: No Hx Chronic Respiratory Disease: No Hx Diabetes: No Hx Cardiac Disease: No Hx Renal Disease: Yes Hx Cirrhosis: No Hx Alcoholism: No Hx HIV/AIDS: No Hx Splenectomy or Spleen Trauma: No Other PMH: CROHNS, IGA GLOMERULARNEPHRITIS, ileOSTOMY, INFLAMMATORY ARTHRITIS, OSTEOPOROSIS, colonectomy - Social History Smoking Status: Current some day smoker Constitutional: Initial Vital Signs Temperature (C) 37 C 11/12/16 21:26 Heart Rate 77 11/12/16 21:26 Respiratory Rate 18 11/12/16 21:26 Blood Pressure 90/46 L 11/12/16 21:26 O2 Sat (%) 87 L 11/12/16 21:26 O2 Delivery Mode Nasal Cannula O2 (L/minute) 2 Allergies/Adverse Reactions: gluten Allergy (Verified 11/12/16 21:26) SULFA Allergy (Uncoded 11/12/16 21:26) Home Medications: Medication Instructions Recorded Estradiol 0.5 mg PO DAILY 11/03/16 Herbals/Supplements -Info Only 1 ea PO DAILY 11/03/16 Progesterone, Micronized 100 mg PO DAILY 11/03/16 [Progesterone] oxyCODONE HCL [Oxycodone HCl] 5 ml PO BID PRN 11/03/16 Acetaminophen [Tylenol 325mg (*)] 650 mg PO Q4HRS PRN #0 tab 11/04/16 Ondansetron Odt [Zofran Odt 4 mg 4 - 8 mg PO DAILY PRN #20 tab 11/04/16 (*)] oxyCODONE IR [Oxycodone Ir (*)] 5 - 10 mg PO Q3HRS PRN #12 tab 11/04/16 Medical Decision Making - Diagnostics Imaging Results: Imaging Impressions Chest X-Ray 11/12/16 22:53 Impression: 1. Negative for pneumonia. 2. Multiple old, mild, thoracic vertebral compression fractures. - Data Points Laboratory Results: Laboratory Results 11/12/16 22:47 11/12/16 22:47 11/12/16 11/12/16 11/12/16 22:47 22:47 22:47 WBC 7.30 10^3/uL 10^3/uL (3.80-9.50) RBC 3.33 10^6/uL L 10^6/uL (4.18-5.33) Hgb 10.5 g/dL L g/dL (12.6-16.3) Hct 30.6 % L % (38.0-47.0) MCV 91.9 fL fL (81.5-99.8) MCH 31.5 pg pg (27.9-34.1) MCHC 34.3 g/dL g/dL (32.4-36.7) RDW 13.7 % % (11.5-15.2) Plt Count 162 10^3/uL 10^3/uL (150-400) MPV 9.7 fL fL (8.7-11.7) Neut % (Auto) 72.4 % % (39.3-74.2) Lymph % (Auto) 16.2 % % (15.0-45.0) [place] % (Auto) 6.7 % % (4.5-13.0) Eos % (Auto) 3.7 % % (0.6-7.6) Baso % (Auto) 0.7 % % (0.3-1.7) Nucleat RBC Rel Count 0.0 % % (0.0-0.2) Absolute Neuts (auto) 5.29 10^3/uL 10^3/uL (1.70-6.50) Absolute Lymphs (auto) 1.18 10^3/uL 10^3/uL (1.00-3.00) Absolute Monos (auto) 0.49 10^3/uL 10^3/uL (0.30-0.80) Absolute Eos (auto) 0.27 10^3/uL 10^3/uL (0.03-0.40) Absolute Basos (auto) 0.05 10^3/uL 10^3/uL (0.02-0.10) Absolute Nucleated RBC 0.00 10^3/uL 10^3/uL (0-0.01) Immature Gran % 0.3 % % (0.0-1.1) Immature Gran # 0.02 10^3/uL 10^3/uL (0.00-0.10) PT 13.0 SEC SEC (12.0-15.0) INR 0.99 (0.83-1.16) APTT 31.9 SEC SEC (23.0-38.0) Sodium 135 mEq/L mEq/L (134-144) Potassium 3.9 mEq/L mEq/L (3.5-5.2) Chloride 99 mEq/L mEq/L (97-110) Carbon Dioxide 26 mEq/l mEq/l (22-31) Anion Gap 10 mEq/L mEq/L (8-16) BUN 41 mg/dL H mg/dL (7-23) Creatinine 2.5 mg/dL H mg/dL (0.6-1.0) Estimated GFR 19 Glucose 87 mg/dL mg/dL (70-100) Calcium 10.0 mg/dL mg/dL (8.5-10.4) Total Bilirubin 0.6 mg/dL mg/dL (0.1-1.4) Conjugated Bilirubin 0.5 mg/dL mg/dL (0.0-0.5) Unconjugated Bilirubin 0.1 mg/dL mg/dL (0.0-1.1) AST 31 IU/L IU/L (14-46) ALT 27 IU/L IU/L (9-52) Alkaline Phosphatase 102 IU/L IU/L (38-126) Troponin I < 0.012 ng/mL ng/mL (0-0.034) Total Protein 7.4 g/dL g/dL (6.3-8.2) Albumin 4.4 g/dL g/dL (3.5-5.0) Lipase 85.0 IU/L IU/L (23-300) Medications Given: Discontinued Medications Sodium Chloride (Ns) 1,000 mls @ 0 mls/hr IV ONCE ONE PRN Reason: Wide Open Stop: 11/12/16 22:54 Last Admin: 11/12/16 22:58 Dose: 1,000 mls Sodium Chloride (Ns) 1,000 mls @ 0 mls/hr IV ONCE ONE PRN Reason: Wide Open Stop: 11/13/16 00:33 Last Admin: 11/13/16 00:37 Dose: 1,000 mls Oxycodone/Acetaminophen (Percocet 5/325) 1 tab PO EDNOW ONE Stop: 11/12/16 23:05 Last Admin: 11/12/16 23:04 Dose: 1 tab Departure - Departure Disposition: [facility] Inpatient Acute Clinical Impression: ANA (acute kidney injury), Dehydration Hypotension Qualifiers: Hypotension type: unspecified hypotension type Qualified Code(s): I95.9 - Hypotension, unspecified Condition: Fair Referrals: Jyoti Petty MD [Primary Care Provider] - As per Instructions
[2016-11-12] MEDS ORDERED: NS 1,000 ML IV ONE (22:53)
[2016-11-12 23:00] LABS: % IMMATURE GRANULYOCYTES 0.3 % (0.0-1.1); ABSOLUTE IMMATURE GRANULOCYTES 0.02 10^3/uL (0.00-0.10); ADD DIFF? NO; ADD MORPH? NO; ADD SCAN? NO; ATYPICAL LYMPHOCYTE FLAG 0 (0-99); FRAGMENT RBC FLAG 0 (0-99); HEMATOCRIT 30.6 % (38.0-47.0); HEMOGLOBIN 10.5 g/dL (12.6-16.3); LEFT SHIFT FLG 0 (0-99); LIPEMIA HEMOLYSIS FLAG 90 (0-99); MEAN CELL HEMOGLOBIN 31.5 pg (27.9-34.1); MEAN CELL HEMOGLOBIN CONCENTR. 34.3 g/dL (32.4-36.7); MEAN CELL VOLUME 91.9 fL (81.5-99.8); MEAN PLATELET VOLUME 9.7 fL (8.7-11.7); PLATELET CLUMPS FLAG 10 (0-99); PLATELET COUNT 162 10^3/uL (150-400); RED BLOOD CELL COUNT 3.33 10^6/uL (4.18-5.33); RED CELL DISTRIBUTION WIDTH 13.7 % (11.5-15.2)
[2016-11-12] MEDS ORDERED: OXYCODONE/APAP 5/325 TAB ONE (23:02)
[2016-11-12] MEDS ORDERED: OXYCODONE/APAP 5/325 TAB PO ONE (23:04)
[2016-11-12 23:10] LABS: INR 0.99 (0.83-1.16)
[2016-11-12 23:11] LABS: APTT 31.9 SEC (23.0-38.0)
[2016-11-12 23:21] LABS: ALANINE AMINOTRANSFERASE 27 IU/L (9-52); ALBUMIN 4.4 g/dL (3.5-5.0); ALKALINE PHOSPHATASE 102 IU/L (38-126); ANION GAP 10 mEq/L (8-16); ASPARTATE AMINOTRANSFERASE 31 IU/L (14-46); BILIRUBIN,TOTAL 0.6 mg/dL (0.1-1.4); BILIRUBIN-CONJUGATED 0.5 mg/dL (0.0-0.5); BILIRUBIN-UNCONJUGATED 0.1 mg/dL (0.0-1.1); CARBON DIOXIDE 26 mEq/l (22-31); CHLORIDE 99 mEq/L (97-110); CREATININE 2.5 mg/dL (0.6-1.0); GLOMERULAR FILTRATION RATE 19; GLUCOSE 87 mg/dL (70-100); POTASSIUM 3.9 mEq/L (3.5-5.2); SODIUM 135 mEq/L (134-144); TOTAL PROTEIN 7.4 g/dL (6.3-8.2)
[2016-11-12 23:32] LABS: TROPONIN I < 0.012 ng/mL (0-0.034)
--- NOTE | 2016-11-12 23:49 | CPEKG ---
Heart Rate: 56 RR Interval: 1071 P-R Interval: 124 QRSD Interval: 76 QT Interval: 452 QTC Interval: 437 P [place]: 79 QRS [place]: 71 T Wave [place]: 63 EKG Severity - NORMAL ECG - EKG Impression: SINUS RHYTHM Electronically Signed By: Oscar Panda 13-Nov-2016 07:15:42
[2016-11-13] MEDS ORDERED: NS 1,000 ML IV ONE ×2 (00:32→02:45)
[2016-11-13 00:47] LABS: COLOR YELLOW; LEUKOCYTE ESTERASE,URINE NEGATIVE (NEGATIVE); NITRITE,URINE NEGATIVE (NEGATIVE)
[2016-11-13] MEDS ORDERED: ACETAMINOPHEN 325 MG TAB PO PRN (00:54)
[2016-11-13] MEDS ORDERED: ONDANSETRON DISINTEGRATING 4 MG TAB PO PRN (00:54)
[2016-11-13] MEDS ORDERED: ONDANSETRON 4 MG/2 ML VIAL IVP PRN (00:54)
[2016-11-13] MEDS ORDERED: NS 1,000 ML IV SCH (01:00)
--- NOTE | 2016-11-13 01:19 | PDGENHP ---
History and Physical - History of Present Illness Patient is a 66 year old female with Crohn's disease s/p subtotal colectomy with ileostomy, IgA nephropathy (baseline cr 1.1-1.3) who presents to the ED with complaint of generalized fatigue. Patient was just admitted to [facility] from -11/04 for ANA due to acute dehydration, was discharged with a creatinine of 1.9. Patient reports that since discharge, she has felt well, but maybe hasn't been maintaining an adequate oral fluid intake. She denies any nausea, vomiting or change in her ileostomy output or dysuria, urinary frequency or urgency. She also denies any fever, chills, cough, congestion or chest pain since discharge. She had outpatient labs performed on 11/09, but had not known of the results yet. On arrival to the ED, patient was afebrile, mildly hypotensive. Labs revealed CBC at her baseline, but creatinine had increased to 2.5, normal rest of BMP. SHe was initiated on IVF hydration and then admitted for recurrent ANA on CKD. History Information - Allergies/Home Medication List Allergies/Adverse Reactions: gluten Allergy (Verified 11/12/16 21:26) SULFA Allergy (Uncoded 11/12/16 21:26) Home Medications: Estradiol 0.5 mg PO DAILY 11/03/16 [Last Taken 11/03/16] Herbals/Supplements -Info Only 1 ea PO DAILY 11/03/16 [Last Taken Unknown] Progesterone, Micronized [Progesterone] 100 mg PO DAILY 11/03/16 [Last Taken ] oxyCODONE HCL [Oxycodone HCl] 5 ml PO BID PRN 11/03/16 [Last Taken Unknown] I have personally reviewed and updated: family history, medical history, social history, surgical history - Past Medical History Additional medical history: Crohn's disease s/p subtotal colectomy with ileostomy. IgA nephropathy (baseline cr 1.1-1.3 in 07/2016). Osteoporosis with several chronic compression fractures. B12 deficiency - Surgical History Additional surgical history: subtotal colectomy with resulting ileostomy. tonsillectomy. ankle fracture repair - Family History Positive for: non-pertinent - Social History Smoking Status: Current some day smoker Alcohol Use: None Drug Use: None Additional social history: Patient lives with her daughter, is independent in ADLs Review of Systems ROS: 10pt was reviewed & negative except for what was stated in HPI & below Physical Exam Temp Pulse Resp BP Pulse Ox 37 C 76 16 98/58 L 95 11/12/16 21:26 11/12/16 23:58 11/12/16 23:58 11/12/16 23:58 11/12/16 23:58 Constitutional: no apparent distress, appears nourished, not in pain Eyes: PERRL, anicteric sclera, EOMI Ears, Nose, Mouth, Throat: hearing normal, ears appear normal, no oral mucosal ulcers, dry mucous membranes Cardiovascular: regular rate and rhythym, no murmur, rub, or gallop, pulses symmetric bilaterally, No JVD, No edema Peripheral Pulses: 2+: dorsalis-pedis (R), dorsalis-pedis (L) Respiratory: no respiratory distress, no rales or rhonchi, clear to auscultation Gastrointestinal: normoactive bowel sounds, soft, non-tender abdomen, no palpable masses, other (ileostomy output liquid, green/brown in color) Genitourinary: no bladder fullness, no bladder tenderness Skin: warm, normal color, no rashes or abrasions, no fluctuance, no induration, No mottled Musculoskeletal: full muscle strength, no muscle tenderness, normal joint ROM, no joint effusions Neurologic: AAOx3, sensation intact bilaterally, CN II-XII Intact, No weakness, No numbness Psychiatric: interacting appropriately, not anxious, not encephalopathic, thought process linear Lab Data & Imaging Review 11/12/16 22:47 11/12/16 22:47 WBC 7.30 10^3/uL (3.80-9.50) 11/12/16 22:47 RBC 3.33 10^6/uL (4.18-5.33) L 11/12/16 22:47 Hgb 10.5 g/dL (12.6-16.3) L 11/12/16 22:47 Hct 30.6 % (38.0-47.0) L 11/12/16 22:47 MCV 91.9 fL (81.5-99.8) 11/12/16 22:47 MCH 31.5 pg (27.9-34.1) 11/12/16 22:47 MCHC 34.3 g/dL (32.4-36.7) 11/12/16 22:47 RDW 13.7 % (11.5-15.2) 11/12/16 22:47 Plt Count 162 10^3/uL (150-400) 11/12/16 22:47 MPV 9.7 fL (8.7-11.7) 11/12/16 22:47 Neut % (Auto) 72.4 % (39.3-74.2) 11/12/16 22:47 Lymph % (Auto) 16.2 % (15.0-45.0) 11/12/16 22:47 [place] % (Auto) 6.7 % (4.5-13.0) 11/12/16 22:47 Eos % (Auto) 3.7 % (0.6-7.6) 11/12/16 22:47 Baso % (Auto) 0.7 % (0.3-1.7) 11/12/16 22:47 Nucleat RBC Rel Count 0.0 % (0.0-0.2) 11/12/16 22:47 Absolute Neuts (auto) 5.29 10^3/uL (1.70-6.50) 11/12/16 22:47 Absolute Lymphs (auto) 1.18 10^3/uL (1.00-3.00) 11/12/16 22:47 Absolute Monos (auto) 0.49 10^3/uL (0.30-0.80) 11/12/16 22:47 Absolute Eos (auto) 0.27 10^3/uL (0.03-0.40) 11/12/16 22:47 Absolute Basos (auto) 0.05 10^3/uL (0.02-0.10) 11/12/16 22:47 Absolute Nucleated RBC 0.00 10^3/uL (0-0.01) 11/12/16 22:47 Immature Gran % 0.3 % (0.0-1.1) 11/12/16 22:47 Immature Gran # 0.02 10^3/uL (0.00-0.10) 11/12/16 22:47 PT 13.0 SEC (12.0-15.0) 11/12/16 22:47 INR 0.99 (0.83-1.16) 11/12/16 22:47 APTT 31.9 SEC (23.0-38.0) 11/12/16 22:47 VBG Lactic Acid 0.5 mmol/L (0.7-2.1) L 11/13/16 00:47 Sodium 135 mEq/L (134-144) 11/12/16 22:47 Potassium 3.9 mEq/L (3.5-5.2) 11/12/16 22:47 Chloride 99 mEq/L (97-110) 11/12/16 22:47 Carbon Dioxide 26 mEq/l (22-31) 11/12/16 22:47 Anion Gap 10 mEq/L (8-16) 11/12/16 22:47 BUN 41 mg/dL (7-23) H 11/12/16 22:47 Creatinine 2.5 mg/dL (0.6-1.0) H 11/12/16 22:47 Estimated GFR 19 11/12/16 22:47 Glucose 87 mg/dL (70-100) 11/12/16 22:47 Calcium 10.0 mg/dL (8.5-10.4) 11/12/16 22:47 Total Bilirubin 0.6 mg/dL (0.1-1.4) 11/12/16 22:47 Conjugated Bilirubin 0.5 mg/dL (0.0-0.5) 11/12/16 22:47 Unconjugated Bilirubin 0.1 mg/dL (0.0-1.1) 11/12/16 22:47 AST 31 IU/L (14-46) 11/12/16 22:47 ALT 27 IU/L (9-52) 11/12/16 22:47 Alkaline Phosphatase 102 IU/L (38-126) 11/12/16 22:47 Troponin I < 0.012 ng/mL (0-0.034) 11/12/16 22:47 Total Protein 7.4 g/dL (6.3-8.2) 11/12/16 22:47 Albumin 4.4 g/dL (3.5-5.0) 11/12/16 22:47 Lipase 85.0 IU/L (23-300) 11/12/16 22:47 Urine Color YELLOW 11/13/16 00:20 Urine Appearance CLEAR 11/13/16 00:20 Urine pH 6.0 (5.0-7.5) 11/13/16 00:20 Ur Specific Hydro 1.011 (1.002-1.030) 11/13/16 00:20 Urine Protein NEGATIVE (NEGATIVE) 11/13/16 00:20 Urine Ketones NEGATIVE (NEGATIVE) 11/13/16 00:20 Urine Blood NEGATIVE (NEGATIVE) 11/13/16 00:20 Urine Nitrate NEGATIVE (NEGATIVE) 11/13/16 00:20 Urine Bilirubin NEGATIVE (NEGATIVE) 11/13/16 00:20 Urine Urobilinogen NEGATIVE EU (0.2-1.0) 11/13/16 00:20 Ur Leukocyte Esterase NEGATIVE (NEGATIVE) 11/13/16 00:20 Urine Glucose NEGATIVE (NEGATIVE) 11/13/16 00:20 Visualized and Interpreted Chest x-ray results: Yes Chest X-Ray results: no infiltrate, normal Visualized and Interpreted EKG results: Yes EKG Interpretation: Positive for: normal sinsus rhythm (no st/twave changes) Assessment & Plan Assessment: Patient is a 66-year-old female with history of Crohn's disease, ileostomy who presents to the ED with complaint of generalized fatigue. ED workup reveals acute renal failure, presumed to be secondary to acute dehydration. Plan: # acute renal failure Patient with history of known IgA nephropathy, previous baseline cr 1-1.3 in . However, had admission to [facility] 1 week ago with ANA, cr 2.4, which corrected to 1.9 with IVF hydration (normal renal US). Since discharge, patient denies any nausea, vomiting or increased ostomy output, but does report feeling she isn 't keeping up with her oral fluid intake. On presentation today, her creatinine is again elevated to 2.5 and she does appear clinically hypovolemic. Likely again a pre-renal etiology of her ANA, will continue aggressive IVF hydration and trend BMP. # crohn's disease Patient reports this has been in remission for several years. Denies any abdominal pain, blood in her vomitus or stools on today's presentation. Will continue her B12 and MVN supplementation. # osteoporosis, chronic pain Stable, will provide pain meds prn. # dispo: admit to observation status # gen: renal diet DVT ppx: HSQ Full code
[2016-11-13] MEDS ORDERED: OXYCODONE/APAP 5/325 TAB PO ONE ×2 (02:25→02:45)
[2016-11-13] MEDS ORDERED: traZODone 50 MG TAB PO PRN (02:26)
[2016-11-13] MEDS ORDERED: ONDANSETRON 4 MG/2 ML VIAL ONE ×2 (02:27→09:48)
[2016-11-13] MEDS ORDERED: OXYCODONE/APAP 5/325 TAB ONE (02:28)
[2016-11-13] MEDS ORDERED: ONDANSETRON 4 MG/2 ML VIAL IVP ONE ×4 (02:45→11:47)
[2016-11-13 06:21] LABS: % IMMATURE GRANULYOCYTES 0.5 % (0.0-1.1); ABSOLUTE IMMATURE GRANULOCYTES 0.03 10^3/uL (0.00-0.10); ADD DIFF? NO; ADD MORPH? NO; ADD SCAN? NO; ATYPICAL LYMPHOCYTE FLAG 30 (0-99); FRAGMENT RBC FLAG 0 (0-99); HEMATOCRIT 34.1 % (38.0-47.0); HEMOGLOBIN 11.4 g/dL (12.6-16.3); LEFT SHIFT FLG 0 (0-99); LIPEMIA HEMOLYSIS FLAG 80 (0-99); MEAN CELL HEMOGLOBIN 31.3 pg (27.9-34.1); MEAN CELL HEMOGLOBIN CONCENTR. 33.4 g/dL (32.4-36.7); MEAN CELL VOLUME 93.7 fL (81.5-99.8); MEAN PLATELET VOLUME 9.4 fL (8.7-11.7); PLATELET CLUMPS FLAG 0 (0-99); PLATELET COUNT 155 10^3/uL (150-400); RED BLOOD CELL COUNT 3.64 10^6/uL (4.18-5.33); RED CELL DISTRIBUTION WIDTH 13.6 % (11.5-15.2)
[2016-11-13 06:37] LABS: ANION GAP 10 mEq/L (8-16); CALCIUM 9.5 mg/dL (8.5-10.4); CARBON DIOXIDE 22 mEq/l (22-31); CHLORIDE 107 mEq/L (97-110); CREATININE 2.3 mg/dL (0.6-1.0); GLOMERULAR FILTRATION RATE 21; GLUCOSE 73 mg/dL (70-100); MAGNESIUM 1.8 mg/dL (1.6-2.3); POTASSIUM 4.1 mEq/L (3.5-5.2); SODIUM 139 mEq/L (134-144)
[2016-11-13] MEDS ORDERED: ONDANSETRON DISINTEGRATING 4 MG TAB ONE (11:49)
[2016-11-13] MEDS ORDERED: ONDANSETRON DISINTEGRATING 4 MG TAB PO ONE (11:51)
--- NOTE | 2016-11-13 14:49 | HOSPPROG ---
Hospitalist Progress Note Assessment/Plan: Patient is a 66-year-old female with history of Crohn's disease, ileostomy who presents to the ED with complaint of generalized fatigue. ED workup reveals acute renal failure, presumed to be secondary to acute dehydration. She was admitted earlier this morning by Dr Chatterjee/ came by to f/u with her. # acute renal failure hx of known IgA nephropathy creat is 2.3 some improvement w hydration no proteinuria recheck labs in a.m. # crohn's disease in remission # osteoporosis # chronic pain resumed home meds #hypotension patient said this is her baselline #nicotine dependence doesn't want a patch # dispo: admit to observation status /recheck labs in the morning Subjective: Kenzie is feeling much better/ eating well. Objective: Vital Signs Temp Pulse Resp BP Pulse Ox 36.8 C 66 16 94/54 L 94 11/13/16 11:53 11/13/16 11:53 11/13/16 11:53 11/13/16 11:53 11/13/16 11:53 Laboratory Results 11/13/16 06:13 11/13/16 06:13 11/12/16 11/13/16 11/14/16 05:59 05:59 05:59 Intake Total 3000 Balance 3000 PT 13.0 SEC (12.0-15.0) 11/12/16 22:47 INR 0.99 (0.83-1.16) 11/12/16 22:47 - Physical Exam Constitutional: no apparent distress, appears nourished, not in pain Eyes: PERRL Ears, Nose, Mouth, Throat: hearing normal Respiratory: no respiratory distress Musculoskeletal: full muscle strength, no muscle tenderness Neurologic: AAOx3 Psychiatric: interacting appropriately, not anxious ICD10 Worksheet Patient Problems: Problems Problem Status Onset ANA (acute kidney injury) Acute Dehydration Acute Hypotension Acute Acute renal failure Acute Nausea & vomiting Acute
[2016-11-13 20:35] VITALS: PULSE 78
[2016-11-13] MEDS ORDERED: PROGESTERONE,MICR 100 MG CAP PO SCH (21:00)
[2016-11-13] MEDS: oxyCODONE IR 5 MG TAB PO PRN (22:16)
[2016-11-14 04:43] VITALS: BP 89/54; RESP 16; TEMP 97.8; O2SAT 92
[2016-11-14 05:26] LABS: ANION GAP 5 mEq/L (8-16); CALCIUM 8.6 mg/dL (8.5-10.4); CARBON DIOXIDE 21 mEq/l (22-31); CHLORIDE 116 mEq/L (97-110); CREATININE 1.7 mg/dL (0.6-1.0); GLOMERULAR FILTRATION RATE 30; GLUCOSE 83 mg/dL (70-100); POTASSIUM 3.8 mEq/L (3.5-5.2); SODIUM 142 mEq/L (134-144)
[2016-11-14] MEDS ORDERED: ESTRADIOL 0.5 MG TAB PO SCH (09:00)
--- NOTE | 2016-11-14 09:32 | HOSPPROG ---
Hospitalist Progress Note Assessment/Plan: Patient is a 66-year-old female with history of Crohn's disease, ileostomy who presents to the ED with complaint of generalized fatigue. ED workup reveals acute renal failure, presumed to be secondary to acute dehydration. She was admitted earlier this morning by Dr Chatterjee/ came by to f/u with her. # acute renal failure hx of known IgA nephropathy creat is 1.7 much improved no proteinuria # crohn's disease in remission # osteoporosis # chronic pain resumed home meds #hypotension patient said this is her baseline #nicotine dependence doesn't want a patch # dispo: dc Subjective: Kenzie has no complaints/is concerned she isn't able to take enough adequate with her ostomy output. Objective: Vital Signs Temp Pulse Resp BP Pulse Ox 36.6 C 78 16 89/54 L 92 11/14/16 04:42 11/14/16 04:42 11/14/16 04:42 11/14/16 04:42 11/14/16 04:42 Laboratory Results 11/13/16 06:13 11/14/16 04:55 11/13/16 11/14/16 11/15/16 05:59 05:59 05:59 Intake Total 6134 Output Total 900 Balance 5234 PT 13.0 SEC (12.0-15.0) 11/12/16 22:47 INR 0.99 (0.83-1.16) 11/12/16 22:47 - Physical Exam Constitutional: no apparent distress, appears nourished, other (thin) Eyes: PERRL Ears, Nose, Mouth, Throat: hearing normal Cardiovascular: regular rate and rhythym Respiratory: no respiratory distress Skin: warm Musculoskeletal: full muscle strength Neurologic: AAOx3 Psychiatric: interacting appropriately ICD10 Worksheet Patient Problems: Problems Problem Status Onset ANA (acute kidney injury) Acute Dehydration Acute Hypotension Acute Acute renal failure Acute Nausea & vomiting Acute
--- NOTE | 2016-11-14 10:19 | GDS ---
[f rep st] DISCHARGE SUMMARY DISCHARGE DIAGNOSES: 1. Acute kidney injury. 2. Crohn disease. 3. Osteoporosis. 4. Chronic pain. 5. Hypertension. 6. Nicotine dependence. HISTORY OF PRESENT ILLNESS: The patient is a 66-year-old female with a history of Crohn disease, status post subtotal colectomy with ileostomy, IgA nephropathy who presented to the emergency room with generalized fatigue. She was recently admitted to [facility] from November 02 to the for acute kidney injury due to acute dehydration and was discharged with a creatinine of 1.9. She felt well, but realized she was having difficulty maintaining an adequate oral fluid intake. She was admitted for further care. HOSPITAL COURSE: 1. Acute kidney injury. She was hydrated with fluids. Her creatinine was 1.7 with a baseline closer to 1.3. She has no proteinuria. Recommend that she get a repeat chemistry panel at the end of this week. I also talked to her that this has happened a few times in a row to see her primary care provider and see if they could provide her with IV fluids in their office p.r.n. when she is unable to take adequate intake. 2. Crohn disease, in remission. 3. Osteoporosis, stable. 4. Chronic pain. Home medications resumed. 5. Hypertension. The patient states this is at her baseline. 6. Nicotine dependence. She did not want a patch during her stay. LABORATORY DATA: Pending labs and tests: None. CONDITION AT DISCHARGE: Stable. Blood pressure is 89/54, heart rate 78, respiratory rate 16, O2 saturation on room air 92%, temperature is 36.6 Celsius. DISCHARGE MEDICATIONS: Please see the EMR. DISCHARGE INSTRUCTIONS: Repeat labs this week. Stay well hydrated. /[id number]/MODL MTDD
[2016-11-14] MEDS: oxyCODONE IR 5 MG TAB PO PRN (15:04)
== END 2016-11-14 15:37 | disposition home or self-care (01) ==
LOC: F1N 11-13 12:08
PROVIDERS: ADMIT Internal Medicine; ATTEND Internal Medicine
DX: N17.9 Acute kidney failure, unspecified (principal); E86.0 Dehydration; K50.90 Crohn's disease, unspecified, without complications; I95.9 Hypotension, unspecified; N18.3 Chronic kidney disease, stage 3 (moderate); M81.0 Age-related osteoporosis without current pathological fracture; G89.29 Other chronic pain; I12.9 Hypertensive chronic kidney disease with stage 1 through stage 4 chronic kidney disease, or unspecified chronic kidney disease; F17.200 Nicotine dependence, unspecified, uncomplicated; E53.8 Deficiency of other specified B group vitamins; N02.8 Recurrent and persistent hematuria with other morphologic changes; Z93.2 Ileostomy status; Z79.52 Long term (current) use of systemic steroids
CPT/HCPCS: 93005; G0378; J2405

== ENCOUNTER 2016-12-05 18:17 | Inpatient (IN) | payer OTHER ==
[2016-12-05] MEDS ORDERED: NS 1,000 ML IV ONE ×2 (20:06→21:20)
[2016-12-05] MEDS ORDERED: ONDANSETRON 4 MG/2 ML VIAL IVP ONE ×2 (20:06→21:59)
[2016-12-05] MEDS ORDERED: ONDANSETRON 4 MG/2 ML VIAL ONE (20:06)
--- NOTE | 2016-12-05 20:17 | EDPHY ---
H & P Stated Complaint: wants iv fluids/feeling dehydrated /weak/seen 1 week ago for same HPI/ROS: CHIEF COMPLAINT: Weakness, nausea, vomiting HISTORY OF PRESENT ILLNESS: This patient is a 66 year old female with history of Chron's, s/p subtotal colectomy, arriving today complaining of weakness and nausea and vomiting intermittently since September. She was prescribed Levaquin towards the end of September for bronchitis and a bladder infection, and states that this has caused considerable gastrointestinal upset. She was admitted with similar symptoms on for acute on chronic kidney injury. Today, she reports she has vomited several times and states that she feels dehydrated. She denies abdominal pain, diarrhea, or blood in her stool. She states she is frustrated with her condition and that she would like to be admitted. She also complains of chronic back pain, and would like some pain medication that is not PO due to her nausea. REVIEW OF SYSTEMS: A ten point review of systems was performed and is negative with the exception of the items mentioned in the HPI. - Personal History Current Tetanus/Diphtheria Vaccine: Yes Tetanus Vaccine Date: 2014 - Medical/Surgical History PMH: 1. Chron's disease 2. Subtotal colectomy with ileostomy 3. IgA nephropathy 4. Osteoporosis, chronic compression fractures Past medical records reviewed including admission from 11/13/16 and 11/03/16. Hx Asthma: No Hx Chronic Respiratory Disease: No Hx Diabetes: No Hx Cardiac Disease: No Hx Renal Disease: Yes Hx Cirrhosis: No Hx Alcoholism: No Hx HIV/AIDS: No Hx Splenectomy or Spleen Trauma: No Other PMH: CROHNS, IGA GLOMERULARNEPHRITIS, ileOSTOMY, INFLAMMATORY ARTHRITIS, OSTEOPOROSIS, colonectomy - Social History Smoking Status: Current some day smoker Additional Social History: Occasional smoker. Lives with daughter. Rides horses. - Physical Exam Exam: General Appearance: Alert. Vital signs reviewed. Eyes: Pupils equal and round, no conjunctival injection, no discharge. Anicteric. ENT, Mouth: Mucous membranes are slightly dry, no oropharyngeal erythema or edema. Neck: No lymphadenopathy, supple. Respiratory: Lungs are clear to auscultation; no wheezes, rales, or rhonchi. Cardiovascular: Regular rate and rhythm; no murmur, rub, or gallop. Gastrointestinal: Abdomen is soft and nontender, no masses or organomegaly, bowel sounds normal. Skin: Warm and dry, no rashes on exposed skin, normal color. Back: Nontender to palpation over the thoracolumbar spine. No CVAT. Extremities: No lower extremity edema, no calf tenderness or swelling. Neurological: Alert and oriented. Moving all four extremities easily and equally. Psychiatric: Normal affect. Constitutional: Initial Vital Signs Temperature (C) 36.4 C 12/05/16 18:48 Heart Rate 92 12/05/16 18:48 Respiratory Rate 18 12/05/16 18:48 Blood Pressure 101/60 12/05/16 18:48 O2 Sat (%) 96 12/05/16 18:48 O2 Delivery Mode Room Air Allergies/Adverse Reactions: gluten Allergy (Verified 12/05/16 18:48) Sulfa (Sulfonamide Antibiotics) Allergy (Verified 12/05/16 18:48) Home Medications: Medication Instructions Recorded Estradiol 0.5 mg PO DAILY 11/03/16 Herbals/Supplements -Info Only 1 ea PO DAILY 11/03/16 Progesterone, Micronized 100 mg PO HS 11/03/16 [Progesterone] oxyCODONE IR [Oxycodone Ir (*)] 5 - 10 mg PO Q3HRS PRN #12 tab 11/04/16 Acetaminophen [Tylenol 325mg (*)] 650 mg PO Q4HRS PRN #0 tab 11/14/16 Metoclopramide [Reglan 10 mg tab 10 mg PO Q6 PRN #40 tab 12/08/16 (*)] Ondansetron Odt [Zofran Odt 4 mg 4 - 8 mg PO Q4 PRN #40 tab 12/08/16 (*)] Promethazine HCl [Phenergan 12.5mg 12.5 mg PO Q6 PRN #40 tablet 12/08/16 tab] Medical Decision Making ED Course/Re-evaluation: Patient had IV fluids, normal saline, running when I examined her. Her BUN is 42 and creatinine is 2.2. It was 1.9 on December 01, 1.5 on November 24, and 1.9 on November 17. Sodium tonight is 130, slightly improved from her blood draw on December 01. She has not had vomiting in the emergency department. She did receive Zofran. She is asking to eat. Her abdomen is soft and nontender on exam. I have spoken with Dr. Aneesh Wren about hospitalization for IV hydration and evaluation of hyponatremia and hypercalcemia. Differential Diagnosis: I considered a ddx that includes but is not limited to bowel obstruction, infection (intra-abdominal/urinary), dehydration. - Data Points Laboratory Results: Laboratory Results 12/06/16 04:14 12/06/16 11:10 Microbiology Results: MICROBIOLOGY 12/06/16 09:45 Urine,Clean Catch Urine Culture - Final Three [place] Types Medications Given: Discontinued Medications Estradiol (Estradiol) 0.5 mg PO DAILY GURJIT Stop: 06/04/17 09:14 Last Admin: 12/08/16 09:04 Dose: 0.5 mg Heparin Sodium (Porcine) (Heparin Sc Injection) 5,000 unit SC Q8HRS GURJIT Stop: 06/05/17 21:59 Last Admin: 12/08/16 15:36 Dose: Not Given Hydromorphone HCl (Dilaudid) 0.5 mg IVP EDNOW ONE Stop: 12/05/16 20:48 Last Admin: 12/05/16 21:05 Dose: 0.5 mg Sodium Chloride (Ns) 1,000 mls @ 0 mls/hr IV EDNOW ONE PRN Reason: Wide Open Stop: 12/05/16 20:07 Last Admin: 12/05/16 20:20 Dose: 1,000 mls Sodium Chloride (Ns) 1,000 mls @ 0 mls/hr IV ONCE ONE PRN Reason: Wide Open Stop: 12/05/16 21:21 Last Admin: 12/05/16 21:20 Dose: 1,000 mls Sodium Chloride (Ns) 1,000 mls @ 150 mls/hr IV CONT GURJIT Stop: 06/03/17 21:59 Last Admin: 12/08/16 09:05 Dose: 1,000 mls Metoclopramide HCl (Reglan Injection) 10 mg IVP ONCE ONE Stop: 12/08/16 09:26 Last Admin: 12/08/16 10:17 Dose: Not Given Metoclopramide HCl (Reglan) 10 mg PO QID PRN PRN Reason: Nausea/Vomiting, Can't Take PO Stop: 06/06/17 11:59 Last Admin: 12/08/16 13:18 Dose: 10 mg Ondansetron HCl (Zofran) 4 mg IVP EDNOW ONE Stop: 12/05/16 20:07 Last Admin: 12/05/16 20:20 Dose: 4 mg Ondansetron HCl (Zofran) 4 mg IVP ONCE ONE Stop: 12/05/16 22:00 Last Admin: 12/05/16 21:57 Dose: 4 mg Ondansetron HCl (Zofran) 4 mg IVP Q4HRS PRN PRN Reason: Nausea/Vomiting, Can't Take PO Stop: 06/04/17 15:47 Last Admin: 12/08/16 13:19 Dose: 4 mg Oxycodone HCl (Oxycodone Ir) 5 - 10 mg PO Q4HRS PRN PRN Reason: Pain, Severe Able to Take PO Stop: 12/17/16 15:24 Last Admin: 12/08/16 05:35 Dose: 10 mg Potassium Chloride (Klor-Con) 40 meq PO ONCE ONE Stop: 12/06/16 08:56 Last Admin: 12/06/16 10:00 Dose: Not Given Potassium Chloride (Potassium Chloride Oral Liquid) 20 meq PO ONCE ONE Stop: 12/06/16 09:32 Last Admin: 12/06/16 09:52 Dose: 20 meq Potassium Chloride (Potassium Chloride Oral Liquid) 20 meq PO ONCE ONE Stop: 12/06/16 14:11 Last Admin: 12/06/16 16:17 Dose: 20 meq Progesterone (Prometrium) 100 mg PO [facility] Stop: 06/04/17 20:59 Last Admin: 12/07/16 21:43 Dose: 100 mg Promethazine HCl (Phenergan) 12.5 mg IVP ONCE PRN PRN Reason: Nausea/Vomiting, Use 2nd Stop: 06/03/17 21:59 Last Admin: 12/07/16 21:42 Dose: 12.5 mg Trazodone HCl (Trazodone) 100 mg PO [facility] Stop: 06/05/17 20:59 Last Admin: 12/07/16 21:43 Dose: 100 mg Departure - Departure Disposition: [facility] Acute Clinical Impression: Dehydration Nausea & vomiting Qualifiers: Vomiting type: unspecified Vomiting Intractability: non-intractable Qualified Code(s): R11.2 - Nausea with vomiting, unspecified Acute renal failure Qualifiers: Acute renal failure type: unspecified Qualified Code(s): N17.9 - Acute kidney failure, unspecified Condition: Good Report Scribed for: Lynette Ralph Report Scribed by: Marion Pro Date of Report: 12/05/16 Time of Report: 21:04 Physician Review and Approval Statement: 12/05/16 20:17 Portions of this note were transcribed by the medical liaison. I, Dr. Lynette Ralph, personally performed the history, physical exam, and medical decision- making; and confirmed the accuracy of the information in the transcribed note.
[2016-12-05] MEDS ORDERED: HYDROmorphONE/DILAUDID 1 MG/ML SYR IVP ONE (20:47)
[2016-12-05 20:56] LABS: % IMMATURE GRANULYOCYTES 1.1 % (0.0-1.1); ABSOLUTE IMMATURE GRANULOCYTES 0.18 10^3/uL (0.00-0.10); ADD DIFF? NO; ADD MORPH? NO; ADD SCAN? NO; ATYPICAL LYMPHOCYTE FLAG 10 (0-99); FRAGMENT RBC FLAG 0 (0-99); HEMATOCRIT 39.9 % (38.0-47.0); HEMOGLOBIN 14.2 g/dL (12.6-16.3); LEFT SHIFT FLG 0 (0-99); LIPEMIA HEMOLYSIS FLAG 90 (0-99); MEAN CELL HEMOGLOBIN 31.3 pg (27.9-34.1); MEAN CELL HEMOGLOBIN CONCENTR. 35.6 g/dL (32.4-36.7); MEAN CELL VOLUME 88.1 fL (81.5-99.8); MEAN PLATELET VOLUME 9.9 fL (8.7-11.7); PLATELET CLUMPS FLAG 10 (0-99); PLATELET COUNT 256 10^3/uL (150-400); RED BLOOD CELL COUNT 4.53 10^6/uL (4.18-5.33); RED CELL DISTRIBUTION WIDTH 13.2 % (11.5-15.2)
[2016-12-05 21:03] LABS: ANION GAP 16 mEq/L (8-16); CALCIUM 10.7 mg/dL (8.5-10.4); CARBON DIOXIDE 19 mEq/l (22-31); CHLORIDE 95 mEq/L (97-110); CREATININE 2.2 mg/dL (0.6-1.0); GLOMERULAR FILTRATION RATE 22; GLUCOSE 110 mg/dL (70-100); POTASSIUM 3.4 mEq/L (3.5-5.2); SODIUM 130 mEq/L (134-144)
--- NOTE | 2016-12-05 21:50 | PDGENHP ---
History and Physical - Chief Complaint Dehydration - History of Present Illness This is a 66-year-old female with history of Crohn's disease status post subtotal colectomy with ileostomy, in IgA nephropathy who has been admitted to [facility] on 2 occasions since the end of October. On 11/02- she was admitted with acute dehydration in discharge with a creatinine of 1.9 up from her baseline of 1.1-1.3. She was admitted to the hospital 2nd time 11/13-11/14 again for acute kidney injury where she was treated with IV fluids in discharge with a creatinine of 1.7. Since her discharge on the she has continued to feel weak and tells me she has trouble staying hydrated. She endorses drinking upwards of 2-3 quarts of water per day, but does not think she absorbs much in the setting of her colectomy. She has also not been eating much and has been having a lot of nausea. She is hardly had anything to eat today. She has been vomiting. She denies any bloody emesis. She denies any changes in her stool. She denies any fevers or chills. She attributes her downward trend in health to taking levofloxacin at the end of September for treatment of bronchitis/urinary tract infection. History Information - Allergies/Home Medication List Allergies/Adverse Reactions: gluten Allergy (Verified 12/05/16 18:48) Sulfa (Sulfonamide Antibiotics) Allergy (Verified 12/05/16 18:48) Home Medications: Estradiol 0.5 mg PO DAILY 11/03/16 [Last Taken 11/12/16] Herbals/Supplements -Info Only 1 ea PO DAILY 11/03/16 [Last Taken Unknown] Progesterone, Micronized [Progesterone] 100 mg PO HS 11/03/16 [Last Taken 09:00] I have personally reviewed and updated: family history, medical history, social history, surgical history - Past Medical History Additional medical history: Crohn's disease s/p subtotal colectomy with ileostomy. IgA nephropathy (baseline cr 1.1-1.3 in 07/2016). Osteoporosis with several chronic compression fractures. B12 deficiency - Surgical History Additional surgical history: subtotal colectomy with resulting ileostomy. tonsillectomy. ankle fracture repair - Family History Positive for: non-pertinent - Social History Smoking Status: Current some day smoker Alcohol Use: None Drug Use: None Additional social history: Patient lives with her daughter, is independent in ADLs Review of Systems ROS: 10pt was reviewed & negative except for what was stated in HPI & below Physical Exam Temp Pulse Resp BP Pulse Ox 36.4 C 92 18 101/60 96 12/05/16 18:48 12/05/16 18:48 12/05/16 18:48 12/05/16 18:48 12/05/16 18:48 Constitutional: no apparent distress, not in pain Eyes: PERRL, anicteric sclera, EOMI Ears, Nose, Mouth, Throat: hearing normal, dry mucous membranes, No oral thrush Cardiovascular: regular rate and rhythym, no murmur, rub, or gallop, No edema Respiratory: no respiratory distress, no rales or rhonchi, clear to auscultation , No expiratory wheeze Gastrointestinal: normoactive bowel sounds, soft, non-tender abdomen, no palpable masses, No guarding, No rebound Genitourinary: no bladder fullness, no bladder tenderness Skin: warm, normal color, other ( poor turgor) Musculoskeletal: full muscle strength, no muscle tenderness, normal joint ROM, no joint effusions Neurologic: AAOx3, CN II-XII Intact, No facial droop Psychiatric: interacting appropriately, not anxious, not encephalopathic, thought process linear Lymph, Heme, Immunologic: no cervical LAD, no supraclavicular LAD Lab Data & Imaging Review 12/05/16 20:16 12/05/16 20:16 WBC 16.28 10^3/uL (3.80-9.50) H 12/05/16 20:16 RBC 4.53 10^6/uL (4.18-5.33) 12/05/16 20:16 Hgb 14.2 g/dL (12.6-16.3) 12/05/16 20:16 Hct 39.9 % (38.0-47.0) 12/05/16 20:16 MCV 88.1 fL (81.5-99.8) 12/05/16 20:16 MCH 31.3 pg (27.9-34.1) 12/05/16 20:16 MCHC 35.6 g/dL (32.4-36.7) 12/05/16 20:16 RDW 13.2 % (11.5-15.2) 12/05/16 20:16 Plt Count 256 10^3/uL (150-400) 12/05/16 20:16 MPV 9.9 fL (8.7-11.7) 12/05/16 20:16 Neut % (Auto) 87.9 % (39.3-74.2) H 12/05/16 20:16 Lymph % (Auto) 6.6 % (15.0-45.0) L 12/05/16 20:16 [place] % (Auto) 3.7 % (4.5-13.0) L 12/05/16 20:16 Eos % (Auto) 0.1 % (0.6-7.6) L 12/05/16 20:16 Baso % (Auto) 0.6 % (0.3-1.7) 12/05/16 20:16 Nucleat RBC Rel Count 0.0 % (0.0-0.2) 12/05/16 20:16 Absolute Neuts (auto) 14.31 10^3/uL (1.70-6.50) H 12/05/16 20:16 Absolute Lymphs (auto) 1.08 10^3/uL (1.00-3.00) 12/05/16 20:16 Absolute Monos (auto) 0.60 10^3/uL (0.30-0.80) 12/05/16 20:16 Absolute Eos (auto) 0.02 10^3/uL (0.03-0.40) L 12/05/16 20:16 Absolute Basos (auto) 0.09 10^3/uL (0.02-0.10) 12/05/16 20:16 Absolute Nucleated RBC 0.00 10^3/uL (0-0.01) 12/05/16 20:16 Immature Gran % 1.1 % (0.0-1.1) 12/05/16 20:16 Immature Gran # 0.18 10^3/uL (0.00-0.10) H 12/05/16 20:16 Sodium 130 mEq/L (134-144) L 12/05/16 20:16 Potassium 3.4 mEq/L (3.5-5.2) L 12/05/16 20:16 Chloride 95 mEq/L (97-110) L 12/05/16 20:16 Carbon Dioxide 19 mEq/l (22-31) L 12/05/16 20:16 Anion Gap 16 mEq/L (8-16) 12/05/16 20:16 BUN 42 mg/dL (7-23) H 12/05/16 20:16 Creatinine 2.2 mg/dL (0.6-1.0) H 12/05/16 20:16 Estimated GFR 22 12/05/16 20:16 Glucose 110 mg/dL (70-100) H 12/05/16 20:16 Calcium 10.7 mg/dL (8.5-10.4) H 12/05/16 20:16 Phosphorus 5.6 mg/dL (2.5-4.5) H 12/05/16 20:16 Assessment & Plan Assessment: This is a 66-year-old female with history of Crohn's disease status post subtotal colectomy with ileostomy and IgA nephropathy now presenting for a 3rd time since the end of October with: # acute kidney injury likely pre renal plan: - Continue IV hydration - urinalysis - urine sodium and creatinine to calculate a FENA - consider Nephrology consultation in the morning # mild hyponatremia (Hypovolemic) plan: - Follow up urine sodium - checked TSH - check a.m. cortisol # mild hypercalcemia likely due to dehydration plan: - Continue to follow # recurrent nausea vomiting of unclear etiology plan: - Supportive care and consider further workup if persisting disposition: The patient will be placed on observation. Will repeat labs in the morning. Will treat her nausea symptomatically with antiemetics.
[2016-12-05] MEDS ORDERED: ONDANSETRON DISINTEGRATING 4 MG TAB PO PRN (22:00)
[2016-12-05] MEDS ORDERED: ACETAMINOPHEN 325 MG TAB PO PRN (22:00)
[2016-12-06 03:12] LABS: COLOR YELLOW; LEUKOCYTE ESTERASE,URINE NEGATIVE (NEGATIVE); NITRITE,URINE NEGATIVE (NEGATIVE)
[2016-12-06 04:15] LABS: BACTERIA 1+ /hpf (NONE SEEN); MUCUS TRACE /lpf (NONE-1+)
[2016-12-06 05:08] LABS: % IMMATURE GRANULYOCYTES 0.6 % (0.0-1.1); ABSOLUTE IMMATURE GRANULOCYTES 0.04 10^3/uL (0.00-0.10); ADD DIFF? NO; ADD MORPH? NO; ADD SCAN? NO; ATYPICAL LYMPHOCYTE FLAG 0 (0-99); FRAGMENT RBC FLAG 0 (0-99); HEMATOCRIT 30.8 % (38.0-47.0); HEMOGLOBIN 10.7 g/dL (12.6-16.3); LEFT SHIFT FLG 0 (0-99); LIPEMIA HEMOLYSIS FLAG 90 (0-99); MEAN CELL HEMOGLOBIN 31.7 pg (27.9-34.1); MEAN CELL HEMOGLOBIN CONCENTR. 34.7 g/dL (32.4-36.7); MEAN CELL VOLUME 91.1 fL (81.5-99.8); MEAN PLATELET VOLUME 9.7 fL (8.7-11.7); PLATELET CLUMPS FLAG 0 (0-99); PLATELET COUNT 180 10^3/uL (150-400); RED BLOOD CELL COUNT 3.38 10^6/uL (4.18-5.33); RED CELL DISTRIBUTION WIDTH 13.4 % (11.5-15.2)
[2016-12-06 05:22] LABS: ANION GAP 8 mEq/L (8-16); CALCIUM 8.9 mg/dL (8.5-10.4); CARBON DIOXIDE 22 mEq/l (22-31); CHLORIDE 98 mEq/L (97-110); CREATININE 1.8 mg/dL (0.6-1.0); GLOMERULAR FILTRATION RATE 28; GLUCOSE 88 mg/dL (70-100); POTASSIUM 3.2 mEq/L (3.5-5.2); SODIUM 128 mEq/L (134-144)
[2016-12-06 05:46] LABS: CORTISOL-AM 4.7 ug/dL (4.5-22.7)
[2016-12-06] MEDS: NS 1,000 ML IV SCH ×3 (06:39→19:36)
--- NOTE | 2016-12-06 08:53 | HOSPPROG ---
Hospitalist Progress Note Assessment/Plan: #ANA: due to dehydration. Urine Na <5. Baseline 1.1-1.3. Cont IVFs. Repeat in morning. #Hypovolemic hyponatremia; decreased PO in setting of N/V. Cont IVFs. Repeat BMP today #Crohn's: s/p subtotal colectomy with ileostomy #Hypercalcemia: resolved with hydration #Nausea/vomiting: cortisol normal. Elevated TSH, check T3/T4. PRN IV anti- emetics #Diet: regular #DVT ppx: ambulating #Disp: warrants inpatient admission with ANA, continuous IVFs. DC once improved Cr Subjective: hungry. wants a regular diet. Mild nausea today Objective: Vital Signs Temp Pulse Resp BP Pulse Ox 37.1 C 70 16 83/52 L 96 12/06/16 08:18 12/06/16 08:18 12/06/16 08:18 12/06/16 08:18 12/06/16 08:18 Laboratory Results 12/06/16 04:14 12/06/16 04:14 12/05/16 12/06/16 12/07/16 05:59 05:59 05:59 Intake Total 2421 Output Total 200 Balance 2221 - Physical Exam Constitutional: no apparent distress Eyes: PERRL Ears, Nose, Mouth, Throat: dry mucous membranes Cardiovascular: regular rate and rhythym, no murmur, rub, or gallop Respiratory: no respiratory distress, no rales or rhonchi Gastrointestinal: normoactive bowel sounds, soft, non-tender abdomen Genitourinary: no bladder fullness, no bladder tenderness Skin: warm Musculoskeletal: full muscle strength Neurologic: AAOx3, CN II-XII Intact Psychiatric: interacting appropriately ICD10 Worksheet Patient Problems: Problems Problem Status Onset ANA (acute kidney injury) Acute Acute renal failure Acute Dehydration Acute Hypotension Acute Nausea & vomiting Acute
[2016-12-06] MEDS ORDERED: POTASSIUM CL 20 MEQ TAB PO ONE (08:55)
[2016-12-06] MEDS ORDERED: ESTRADIOL 0.5 MG TAB PO SCH (09:00)
[2016-12-06] MEDS ORDERED: Herbals/Supplements -Info Only PO SCH (09:00)
[2016-12-06] MEDS ORDERED: POTASSIUM CL 20 MEQ/15 ML UDCUP PO ONE ×2 (09:31→14:10)
[2016-12-06] MEDS: ESTRADIOL 1 MG TAB PO SCH (09:50)
[2016-12-06 11:47] LABS: ANION GAP 8 mEq/L (8-16); CALCIUM 9.1 mg/dL (8.5-10.4); CARBON DIOXIDE 22 mEq/l (22-31); CHLORIDE 102 mEq/L (97-110); CREATININE 1.7 mg/dL (0.6-1.0); GLOMERULAR FILTRATION RATE 30; GLUCOSE 69 mg/dL (70-100); POTASSIUM 3.1 mEq/L (3.5-5.2); SODIUM 132 mEq/L (134-144)
[2016-12-06] MEDS: ONDANSETRON 4 MG/2 ML VIAL IVP PRN ×2 (16:16→21:04)
[2016-12-06] MEDS: PROMETHAZINE HCL 25 MG/ML INJ IVP PRN (19:29)
[2016-12-06] MEDS: PROGESTERONE,MICR 100 MG CAP PO SCH (21:04)
[2016-12-07] MEDS: NS 1,000 ML IV SCH ×4 (02:19→21:46)
[2016-12-07] MEDS: ONDANSETRON 4 MG/2 ML VIAL IVP PRN ×5 (02:19→23:10)
[2016-12-07 05:25] LABS: ANION GAP 2 mEq/L (8-16); CALCIUM 8.7 mg/dL (8.5-10.4); CARBON DIOXIDE 19 mEq/l (22-31); CHLORIDE 113 mEq/L (97-110); CREATININE 1.5 mg/dL (0.6-1.0); GLOMERULAR FILTRATION RATE 35; GLUCOSE 60 mg/dL (70-100); POTASSIUM 3.9 mEq/L (3.5-5.2); SODIUM 134 mEq/L (134-144)
[2016-12-07] MEDS: ESTRADIOL 1 MG TAB PO SCH (08:37)
[2016-12-07] MEDS ORDERED: PROMETHAZINE HCL 25 MG TAB PO PRN (08:44)
--- NOTE | 2016-12-07 15:30 | HOSPPROG ---
Hospitalist Progress Note Assessment/Plan: Assessment: 66-year-old female presents with acute kidney injury on chronic kidney disease in the setting of nausea and vomiting Plan: 1. ANA on CKD stage 3: acute worsening due to hypovolemia with Urine Na <5. Baseline 1.1-1.3. Cont IVFs at 150 cc/hour - remains oliguric, only 2 episodes of urine output throughout today, requires ongoing use of IV fluids - monitor strict I&Os -repeat serum creatinine level tomorrow 2. acute hyponatremia. Hypovolemic, secondary to decreased oral intake in the setting of nausea and vomiting, continue IV normal saline 3. history of Crohn's disease. Subtotal colectomy with ileostomy, continue to monitor stool output for GI losses 4. Acute hypercalcemia. Secondary to hypovolemia, responded to IV hydration 5. Nausea and vomiting. Acute worsening of chronic condition, patient attributes her previous symptoms to oral antibiotics she received 2 months ago but it seems unlikely that the patient's acute exacerbation is truly related to administration of antibiotics 2 months prior - symptomatically responding to Zofran and Phenergan, continue Diet. Regular as tolerated Prophylaxis. Moderate risk patient, heparin subcu Code. Full Disposition. Anticipated discharge is 12/08/2016, pending improvement in urine output and improvement in serum creatinine level. Subjective: Counseled patient extensively regarding ongoing use of IV fluids, reconciling how to manage nausea with oral versus IV antiemetics, providing her with potential pain and sleep aid medications tonight Objective: Vital Signs Temp Pulse Resp BP Pulse Ox 36.7 C 67 16 91/57 L 95 12/07/16 00:00 12/07/16 08:00 12/07/16 08:00 12/07/16 08:00 12/07/16 08:00 Laboratory Results 12/07/16 04:14 12/06/16 12/07/16 12/08/16 05:59 05:59 05:59 Intake Total 3394 Output Total 300 350 Balance 3094 -350 - Time Spent With Patient Time Spent with Patient: greater than 35 minutes Time Spent with Patient: Greater than 35 minutes spent on this patients care, greater than 50% of time spent counseling, educating, and coordinating care regarding the above mentioned plan. - Physical Exam Constitutional: no apparent distress, not in pain, No uncomfortable Cardiovascular: regular rate and rhythym, no murmur, rub, or gallop, edema ( trace bilateral lower extremity) Respiratory: no respiratory distress, no rales or rhonchi, clear to auscultation Gastrointestinal: normoactive bowel sounds, soft, non-tender abdomen, other ( ostomy bag in place), No guarding, No distension Neurologic: AAOx3 Psychiatric: not encephalopathic, anxious, No agitated ICD10 Worksheet Patient Problems: Problems Problem Status Onset Nausea & vomiting Acute Acute renal failure Acute ANA (acute kidney injury) Acute Dehydration Acute Hypotension Acute
[2016-12-07] MEDS: oxyCODONE IR 5 MG TAB PO PRN ×2 (19:30→23:10)
[2016-12-07] MEDS ORDERED: traZODone 100 MG TAB PO SCH (21:00)
[2016-12-07] MEDS: PROMETHAZINE HCL 25 MG/ML INJ IVP PRN (21:42)
[2016-12-07] MEDS: HEPARIN 5,000 UNIT/0.5 ML SYR SC SCH (21:43)
[2016-12-07] MEDS: PROGESTERONE,MICR 100 MG CAP PO SCH (21:43)
[2016-12-07 23:15] VITALS: PULSE 67; RESP 14; TEMP 97.8; O2SAT 95
[2016-12-08 05:06] LABS: ANION GAP 7 mEq/L (8-16); CALCIUM 9.2 mg/dL (8.5-10.4); CARBON DIOXIDE 16 mEq/l (22-31); CHLORIDE 114 mEq/L (97-110); CREATININE 1.4 mg/dL (0.6-1.0); GLOMERULAR FILTRATION RATE 38; GLUCOSE 68 mg/dL (70-100); POTASSIUM 3.8 mEq/L (3.5-5.2); SODIUM 137 mEq/L (134-144)
[2016-12-08] MEDS: oxyCODONE IR 5 MG TAB PO PRN (05:35)
[2016-12-08] MEDS: HEPARIN 5,000 UNIT/0.5 ML SYR SC SCH ×2 (05:35→15:36)
[2016-12-08] MEDS: ESTRADIOL 1 MG TAB PO SCH (09:04)
[2016-12-08] MEDS: NS 1,000 ML IV SCH (09:05)
[2016-12-08] MEDS: ONDANSETRON 4 MG/2 ML VIAL IVP PRN ×2 (09:10→13:19)
[2016-12-08] MEDS ORDERED: METOCLOPRAMIDE 10 MG/2 ML VIAL IVP ONE (09:25)
[2016-12-08] MEDS: METOCLOPRAMIDE 10 MG TAB PO PRN ×2 (09:46→13:18)
[2016-12-08 12:20] VITALS: BP 99/59
--- NOTE | 2016-12-08 12:44 | PDDCSUM ---
Discharge Summary Discharge Summary: DISCHARGE SUMMARY FOLLOW-UP ITEMS: Creatinine BUN and lytes next week DATE OF ADMISSION: 12/05/2016 DATE OF DISCHARGE: 12/08/2016 DISCHARGE DIAGNOSES: 1. Acute kidney injury on chronic kidney disease stage 3 2. Acute hypovolemic hyponatremia 3. Chronic Crohn's disease 4. Acute hypercalcemia 5. Acute on chronic nausea and vomiting 6. Chronic pain with continuous opiate dependency CONSULTATIONS: None PROCEDURES / IMAGING: None CHIEF COMPLAINT: Nausea vomiting SUBJECTIVE: Patient's nausea is controlled prior to discharge, she is tolerating oral intake of solids and liquids PHYSICAL EXAM ON DISCHARGE: Systolic blood pressure is 110, heart rate 60, afebrile overnight, satting well room air, urine output greater than 1 L over the last 24 hours, bowel sounds are hypoactive, abdomen is soft nontender nondistended no masses palpated LABS ON DISCHARGE: Serum sodium 137, creatinine 1.4, potassium 3.8 HOSPITAL COURSE BY PROBLEM: 1. Acute kidney injury on chronic kidney disease stage 3. Acute worsening secondary to hypovolemia in the setting of nausea vomiting and poor oral intake. Patient's urine sodium level was less than 5 and her creatinine level was 2.2 with an elevated BUN. She received IV normal saline and we controlled her nausea, resulting in improvement in her renal function. Her creatinine level down to 1.4 at time of discharge. She will have repeat creatinine BUN and lytes prior to her follow up with her primary care provider. 2. Acute hypovolemic hyponatremia. Secondary to poor oral intake in the setting of nausea and vomiting, responded to IV normal saline. 3. Chronic Crohn disease. Patient is status post subtotal colectomy with ileostomy, this did not appear to be affecting her current hospitalization. She was not experiencing diarrhea. 4. Acute hypercalcemia. Secondary to hypovolemia, this responded to IV hydration. 5. Acute on chronic nausea and vomiting. Although the patient attributes her symptoms to oral antibiotic she received 2 months ago it seems unlikely that the patient's acute exacerbation is truly related to administration of antibiotics that remotely. The patient did not have any signs of acute abdomen and did not have any signs of acute Crohn's flare. She is experiencing gastroenteritis or she has chronic functional abdominal issue. She should take Reglan as first-line treatment given her chronic opiate use and propensity for constipation. 6. Chronic pain with continuous opiate dependency. Patient chronically takes oxycodone and this may be contributing to some mild constipation and her abdominal symptoms. She should utilize Reglan as needed for first-line treatment to avoid constipation. DISCHARGE MEDICATIONS: Please see official discharge medication reconciliation sheet in chart , Reglan as needed, Zofran as needed, Phenergan as needed. DISCHARGE INSTRUCTIONS: Patient should follow up with Dr. Petty in the next several days and have repeat creatinine BUN and lytes sent prior to that appointment. TIME SPENT: Greater than 30 minutes were spent on direct patient care, as well as discharge planning and preparation.
== END 2016-12-08 16:15 | disposition home or self-care (01) | DRG 683 ==
LOC: F3E 23:20 → OBSVTOIN 12-06 18:41
PROVIDERS: ADMIT Family Medicine; ATTEND Family Medicine
DX: N17.9 Acute kidney failure, unspecified (principal); E87.1 Hypo-osmolality and hyponatremia; E83.52 Hypercalcemia; N18.3 Chronic kidney disease, stage 3 (moderate); K50.90 Crohn's disease, unspecified, without complications; N02.8 Recurrent and persistent hematuria with other morphologic changes; G89.29 Other chronic pain; F11.20 Opioid dependence, uncomplicated; M81.0 Age-related osteoporosis without current pathological fracture; F17.210 Nicotine dependence, cigarettes, uncomplicated
CPT/HCPCS: 84481-90; 96374; G0378; J1170; J2405; J2550